=== PATIENT | female | born 1930 ===

== ENCOUNTER 2018-02-07 14:52 | Inpatient (IN) ==
--- NOTE | 2018-02-07 20:57 | Internal Med History&Physical ---
<Pedro Lal - Last Filed: 02/07/18 23:51> Date of Encounter: 02/07/18 Time of Encounter: 20:56 Internal Medicine - H&P: HPI Chief complaint: Weakness Admitted From: Hospital to Hospital Transfer Plans for Post Hospital Care: Home History of present illness: Ms. Bautista is a 87 year old female with past medical history of CHF, diabetes, hypertension, thyroid disease presented to emergency department in [place] with complaint of weakness 3 days. Patient states that her symptoms began gradually and has not improved. She denies any prior episodes similar to this. Weakness is worse with exertion and has no relieving factors. Denies any symptoms of fevers, chills, nausea, vomiting, chest pain, shortness of breath, changes to bowel or bladder. She denies any dysuria, hematuria, foul odors, increased frequency. Bowel movements have been normal without evidence of diarrhea or hematochezia or melena. She does live at home with her of 57 years and is able to move around with her cane. She states she is able to make it from the front door to her kitchen back to the living room before she has to rest. She does receive physical therapy 3 times weekly at home. Her only complaint at this time is gas in the abdomen without abdominal pain which she states is chronic for her and she is do not with for many years. At the [place] emergency room, vital signs first noted for a blood pressure of 178/76. Remainder of vitals include heart rate 88, respiratory rate 16, temperature 98.2, saturating 94% oxygen on room air. Laboratory results were significant for hemoglobin of 9.7, white count of 8.2, platelets of 24, potassium 4.5, BUN/creatinine/creatinine of 15/1.02, bicarbonate of 25, glucose 210. Lactic acid was mildly elevated at 3.13 and troponin was negative. PT/INR of 15.9/1.3, PTT of 27.6. BNP was 267. She was tested for the flu PCR which was negative. Urinalysis was obtained and was positive for nitrites but negative for leukocyte esterase or epithelial cells. She was started on Rocephin. Chest x-ray was obtained and showed evidence of left ventricular enlargement but no acute process. She was also found to have an increased density behind the heart possibly consistent with hiatal hernia. Per [place] ED notes And daughter who was present at that time, patient is scheduled to meet with a Dr. Alcazar for her thrombocytopenia but has not met with him yet. He was contacted in the [place] emergency room who says that she will follow-up as outpatient but did not feel the need to evaluate well inpatient. Past medical history as above Past surgical history includes hysterectomy, cholecystectomy, thyroidectomy Social history: Never smoker, denies alcohol or drug use Past Med Surg Social Fam HX - Past Medical History Medical history: CHF, diabetes, hypertension, thyroid disease - Past Surgical History Surgical History: cholecystectomy, hysterectomy, thyroidectomy - Social History Smoking Status: Never smoker Smokeless Tobacco Status: No Alcohol use: none Drug use: none Internal Medicine - H&P: Meds Acetaminophen [Tylenol] 650 mg PO Q6HR PRN 02/07/18 [History] Amlodipine/Valsartan [Exforge 10-320 mg Tablet] 1 tab PO DAILY 02/07/18 [History] Cholecalciferol (Vitamin D3) [Decara] 10,000 unit PO MO 02/07/18 [History] Cranberry Fruit Extract [Cranberry] 400 mg PO TID 02/07/18 [History] Cyanocobalamin (B-12) [Vitamin B12] 1,000 mcg IM QMONTH 02/07/18 [History] Cyanocobalamin (Vitamin B-12) [Vitamin B12] 500 mcg PO DAILY 02/07/18 [History] Fesoterodine Fumarate [Toviaz] 8 mg PO DAILY 02/07/18 [History] Glimepiride [Amaryl] 1 mg PO DAILY 02/07/18 [History] Levothyroxine Sodium [Levoxyl] 75 mcg PO DAILY 02/07/18 [History] Metoprolol Succinate [Toprol Xl] 100 mg PO DAILY 02/07/18 [History] Trazodone HCl 100 mg PO HS 02/07/18 [History] metFORMIN [Glucophage] 500 mg PO DAILY 02/07/18 [History] All Systems PM: A 10-system review of systems was performed and is negative for pertinent findings except as documented above in the HPI. Review of systems: - Constitutional: Denies fevers, chills, weight loss, generalized fatigue - CVS: Denies chest pain, palpitations, BUNCH, orthopnea, edema, PND, - Pulm: Denies SOB, cough, sputum, hematemesis, wheezing - GI: Admits to gas. Denies abdominal pain, anorexia, nausea, vomiting, diarrhea, constipation, melena - : Denies dysuria, increased frequency, urgency, hematuria, - Heme: Denies ease of bleeding or bruising - Skin: Denies rashes, ulcers, color changes, - Neuro: Denies SIMS, paresthesias, focal deficits, ataxia, - Constitutional Vitals: Temp Pulse Resp BP Pulse Ox 97.5 F L 83 16 144/78 91 02/07/18 18:49 02/07/18 18:49 02/07/18 18:49 02/07/18 18:49 02/07/18 18:49 Exam: Gen.: Vitals noted. No acute distress. AAOx3, resting comfortably in bed. HEENT: PERRL/EOMI, oropharynx clear, Normocephalic, atraumatic, MMM Neck: Supple. Well-healed thyroid scar Cardiac: RRR, no murmur, +S1/S2, No BLE edema Pulmonary: Possibly minimally diminished at right lower lobe otherwise CTA bilaterally, no wheezes, rales or rhonchi, equal chest expansion, unlabored breathing Abdomen: soft, nontender, BS noted, no guarding, no palpable HSM : Daley catheter in place with light yellow urine Skin: warm and dry, no visible lesions. MSK: ROM not assessed, no joint swelling noted, gait no assessed while in bed. Non tender calf or clubbing Neuro: A&Ox3, moves all extremities, no focal deficits, sensation intact, cranial nerves grossly intact Psych: Appropriate mood and behavior, AOx3 - Assessment and plan (1) UTI (urinary tract infection) Current Visit: Yes Status: Acute Assessment and plan: - UA in [place] positive for nitrites in the setting of weakness - Otherwise asymptomatic. - urine culture obtained in [place] - Started on rocephin in [place], will continue. - Non septic on presentation. Will give fluids and trend lactate Qualifiers: Urinary tract infection type: acute cystitis Hematuria presence: without hematuria Qualified Code(s): N30.00 - Acute cystitis without hematuria (2) Thrombocytopenia Current Visit: Yes Status: Acute Assessment and plan: - Per [facility] records, may be a chronic issue. - Platelets low at 24, unknown baseline. - Could be acute on chronic in the setting of infection with lactic acidosis - Was scheduled to be seen as outpatient with a Dr. Alcazar - No signs of bleed. H/H stable - Will consult Heme/Onc while inpatient - Will order type and screen. (3) Weakness Current Visit: Yes Status: Acute Assessment and plan: - Possibly secondary to UTI - Will order PT/OT - Rocephin for UTI - Check TSH (4) Diabetes Current Visit: Yes Status: Chronic Assessment and plan: - BS in [place] of 210 - Will order SSI - ADA diet. Qualifiers: Diabetes mellitus type: type 2 Diabetes mellitus chcf insulin use: unspecified chcf insulin use status Diabetes mellitus complication status: without complication Qualified Code(s): E11.9 - Type 2 diabetes mellitus without complications (5) Hypothyroid Current Visit: Yes Status: Acute Assessment and plan: - Per patient history, patient has thyroidectomy due to mass - She states mass was non malignant. - Patient's meds not reconciled yet. - Will check TSH Qualifiers: Hypothyroidism type: acquired Qualified Code(s): E03.9 - Hypothyroidism, unspecified (6) Hypertension Current Visit: Yes Status: Acute Assessment and plan: - Mildly elevated at 144/78 - Will continue home meds once reconciled. - Will add hydralazine in meantime. PRN Qualifiers: Hypertension type: essential hypertension Qualified Code(s): I10 - Essential (primary) hypertension (7) DVT prophylaxis Current Visit: Yes Status: Acute Assessment and plan: scd in the setting of thrombocytopenia - Time Spent With Patient Total time spent is greater than 50% in coordination of care (as documented) at patient's floor/unit and/or counseling patient: <Neil Silva - Last Filed: 02/08/18 01:48> Date of Encounter: 02/08/18 Internal Medicine - H&P: HPI History of present illness: Ms. Bautista is a 87 year old female All Systems PM: A 10-system review of systems was performed and is negative for pertinent findings except as documented above in the HPI. - Constitutional Vitals: Temp Pulse Resp BP Pulse Ox 98.0 F 82 15 144/70 91 02/08/18 00:28 02/08/18 00:28 02/08/18 00:28 02/08/18 00:28 02/08/18 00:28 Internal Med - H&P Results - Labs CBC & Chem 7: 02/08/18 00:21 02/08/18 00:21 Labs: Short CBC 02/08/18 Range/Units 00:21 WBC 5.9 (4.3-11.1) K/mcL Hgb 8.1 L (11.5-15.4) g/dL Hct 24.9 L (35.3-44.9) % Plt Count 18 L* (140-400) K/mcL Neutrophils # 1.9 (1.6-8.9) K/mcL BMP 02/08/18 00:21 Sodium 135 L Potassium 4.0 Chloride 103 Carbon Dioxide 27 BUN 12 Creatinine 0.91 Glucose 182 H Calcium 9.1 - Time Spent With Patient Total time spent is greater than 50% in coordination of care (as documented) at patient's floor/unit and/or counseling patient: - Attending Attestation I saw and evaluated the patient. I reviewed the residents note, performed my own physical examination and agree with findings and plan as documented in the residents note. Patient seen and examined on 01/18/18. Patient presented [place] emergency room for weakness and gassy pain. Found to have urinary tract infection of thrombocytopenia. Transferred here for further management. We will continue to monitor her platelets and transfuse if she continues to drop. Currently she is not showing signs of bleeding. We will type and screen her just in case. Follow-up urine cultures when available.
[2018-02-07] MEDS ORDERED: Naloxone 0.4 MG/ML INJ IVP PRN (21:26)
[2018-02-07] MEDS ORDERED: Dextrose Gel 15 GM/37.5 ML TUBE PO PRN ×2 (21:43)
[2018-02-07] MEDS ORDERED: *HR* Dextrose 50 % in Water (Syg) 50 ML SYRINGE IVP PRN (21:43)
[2018-02-07] MEDS ORDERED: D5% in Water 1,000 ML IVC PRN (21:43)
[2018-02-08] MEDS: Simethicone 80 MG TAB.CHEW PO PRN ×2 (00:29→18:02)
[2018-02-08] MEDS: 0.9 % Sodium Chloride 1,000 ML IVC SCH ×2 (00:31→14:34)
[2018-02-08 00:38] LABS: Mean Corpuscular Volume 103.3 fL (83.0-100.0)
[2018-02-08 00:39] LABS: Hematocrit 24.9 % (35.3-44.9); Hemoglobin 8.1 g/dL (11.5-15.4); Immature Platelets 4.5 % (1.1-6.1); Mean Corpuscular HGB Conc 32.5 g/dL (31.6-35.5); Mean Corpuscular Hemoglobin 33.6 pg (28.0-33.3); Mean Platelet Volume 9.9 fL (9.4-12.4); Nucleated Red Blood Cells 0.3 /100 WBC (0); Red Blood Count 2.41 M/mcL (3.82-4.97); Red Cell Distribution Width 17.1 % (11.5-14.5)
[2018-02-08 00:47] LABS: INR 1.4; Prothrombin Time 15.4 Seconds (9.4-12.1)
[2018-02-08 00:49] LABS: Activated Partial Thrombo Time 28.7 Seconds (26.0-36.0)
[2018-02-08 00:55] LABS: BUN/Creatinine Ratio 13 (6-26); Blood Urea Nitrogen 12 mg/dL (8-23); Calcium 9.1 mg/dL (8.6-10.3); Carbon Dioxide 27 mEq/L (23-29); Chloride 103 mEq/L (98-107); Glucose 182 mg/dL (70-105); Osmolality,Calculated 284 (280-300); Sodium 135 mEq/L (136-145); eGFR For Non-African Americans 59 (> 60)
[2018-02-08 01:01] LABS: Platelet Count 18 K/mcL (140-400)
[2018-02-08 01:05] LABS: Lymphocytes # 3.4 K/mcL (0.6-4.6); Monocytes # 0.6 K/mcL (0.0-1.3); Neutrophils # 1.9 K/mcL (1.6-8.9)
[2018-02-08 01:06] LABS: Platelet Estimate Marked Decrease (Normal); Polychromasia 1+ (Not Present)
[2018-02-08] MEDS ORDERED: 0.9 % Sodium Chloride 250 ML ONE (02:12)
[2018-02-08 05:01] LABS: Hematocrit 24.7 % (35.3-44.9); Hemoglobin 8.1 g/dL (11.5-15.4); Immature Platelets 3.4 % (1.1-6.1); Mean Corpuscular HGB Conc 32.8 g/dL (31.6-35.5); Mean Corpuscular Hemoglobin 33.2 pg (28.0-33.3); Mean Corpuscular Volume 101.2 fL (83.0-100.0); Mean Platelet Volume 10.7 fL (9.4-12.4); Nucleated Red Blood Cells 0.3 /100 WBC (0); Red Blood Count 2.44 M/mcL (3.82-4.97); Red Cell Distribution Width 17.1 % (11.5-14.5)
[2018-02-08 05:19] LABS: BUN/Creatinine Ratio 13 (6-26); Blood Urea Nitrogen 11 mg/dL (8-23); Calcium 9.2 mg/dL (8.6-10.3); Carbon Dioxide 25 mEq/L (23-29); Chloride 103 mEq/L (98-107); Glucose 164 mg/dL (70-105); Osmolality,Calculated 283 (280-300); Potassium 4.2 mEq/L (3.5-5.1); Sodium 135 mEq/L (136-145); eGFR For Non-African Americans > 60 (> 60)
[2018-02-08 05:49] LABS: Platelet Count 30 K/mcL (140-400)
[2018-02-08 06:20] LABS: Lymphocytes # 4.1 K/mcL (0.6-4.6); Monocytes # 1.4 K/mcL (0.0-1.3); Neutrophils # 1.4 K/mcL (1.6-8.9)
[2018-02-08 06:21] LABS: Platelet Estimate Marked Decrease (Normal)
[2018-02-08] MEDS: cefTRIAXone 1,000 MG in Water for inj. (sterile) 20 ML 10 ML IVP SCH (08:01)
[2018-02-08] MEDS: Acetaminophen 325 MG TABLET PO PRN ×2 (08:02→18:01)
[2018-02-08] MEDS: Metoprolol XL (24 HR) Succ 50 MG TAB.ER.24H PO SCH (08:02)
[2018-02-08] MEDS: Insulin LISPRO 300 UNITS/3 ML VIAL SQ SCH ×4 (08:02→21:01)
[2018-02-08] MEDS: Valsartan 160 MG TABLET PO SCH (08:02)
[2018-02-08] MEDS: amLODIPine 5 MG TABLET PO SCH (08:02)
--- NOTE | 2018-02-08 08:40 | Internal Med Progress Note ---
Hospitalist Progress Note - Encounter Date of Encounter: 02/08/18 Time of Encounter: 08:40 - Subjective Interval History: Patient seen and examined bedside this morning. No acute overnight events. Had a low-grade fever overnight. Denied any difficulty urinating before. Denied any burning urination before. Denies any abdominal pain back pain. Had c omplaint of sickness for past few days. Does not know about her hemoglobin levels before. Denies any blood in stool. Was able to walk with walker at home. - Exam Vitals: Temp Pulse Resp BP Pulse Ox 100.4 F H 84 16 138/71 93 02/08/18 07:03 02/08/18 07:03 02/08/18 07:03 02/08/18 07:03 02/08/18 07:03 Exam: General: In no acute distress. Conversant. Obese. Respiratory exam: CTAB. no accessory muscle use, rales, rhonchi, wheezes Cardiovascular exam: RRR, +S1, +S2. 3/6 ejection systoic murmur, no gallop, rubs. GI/Abdominal exam: Non-tender, Non-distended, normal bowel sounds, soft, no peritoneal signs. edan in place with clear urine Extremities exam: full ROM, no pedal edema, warm, pulses palpable in b/l lower extremities. no calf tenderness Neurological exam: CN II-XII intact, AO X3, no focal deficits. no pronater drift, facial droop, speech deficit Skin exam: No skin rash, ulcer, purpura or ecchymosis. - Summary of Assessment and Plan Summary of Assessment and Plan: UTI - UA in [place] positive for nitrites in the setting of weakness, denies dysuria - Had elevated lactate of 3.3. Now resolved - f/u Urine culture. repeat UA - c/w ceftriaxone - c/w IVF fluids Thrombocytopenia - possibly chronic. unknown baseline. Could be acute on chronic in the setting of infection with lactic acidosis - No signs of bleed. H/H stable - Heme/Onc consulted - Will transfuse if develops spontaneous bleeding Anemia - Unknown baseline. Possibly chronic - Monitor for bleeding Weakness - No focal deficits. Possibly secondary to UTI and anemia - f/u PT/OT. Was get therapy at home. - TSH normal Diabetes - c/w SSI, accuchecks and ADA diet. Hypothyroid - TSH normal. c/w home levothyroxin Hypertension - c/w home medications DVT prophylaxis -scd in the setting of thrombocytopenia - Time Spent with Patient Total time spent is greater than 50% in coordination of care (as documented) at patient's floor/unit and/or counseling patient: Internal Medicine: Result - Labs CBC & Chem 7: 02/08/18 04:39 02/08/18 04:39 Labs: Short CBC 02/08/18 02/08/18 Range/Units 00:21 04:39 WBC 5.9 6.9 (4.3-11.1) K/mcL Hgb 8.1 L 8.1 L (11.5-15.4) g/dL Hct 24.9 L 24.7 L (35.3-44.9) % Plt Count 18 L* 30 L* D (140-400) K/mcL Neutrophils # 1.9 1.4 L (1.6-8.9) K/mcL BMP 02/08/18 02/08/18 00:21 04:39 Sodium 135 L 135 L Potassium 4.0 4.2 Chloride 103 103 Carbon Dioxide 27 25 BUN 12 11 Creatinine 0.91 0.87 Glucose 182 H 164 H Calcium 9.1 9.2 - ABG Interpretation ABG results: PT/INR, D-dimer PT 15.4 Seconds (9.4-12.1) H 02/08/18 00:21 Consult Discharge Plan - Plan Referrals: NONE,PCP [Primary Care Provider] -
[2018-02-08 09:00] LABS: Bilirubin,Urine Negative (Negative); Blood,Urine Negative (Negative); Color,Urine Yellow (Yellow); Glucose,Urine (UA) Normal (Normal); Ketones,Urine Negative (Negative); Leukocyte Esterase,Urine Small (Negative); Nitrite,Urine Negative (Negative); Protein,Urine Negative (Neg-Trace); Specific Gravity,Urine 1.016 (1.010-1.025); Urobilinogen,Urine Normal (Normal)
[2018-02-08 09:03] LABS: Bacteria,Urine None Seen per hpf (None-Few); Clarity,Urine Hazy (Clear); Squamous Epithelial Cell,Urine Many per lpf (None-Few)
[2018-02-08] MEDS: Ondansetron 4 MG/2 ML VIAL IVP PRN (18:01)
--- NOTE | 2018-02-08 21:34 | Event Note ---
Date of Encounter: 02/08/18 Time of Encounter: 20:10 Notified by nurse of patient reporting chest pain and oxygen saturations dropping. EKG and chest xray ordered. Assessed patient at bedside, now stating chest pain has completely resolved. EKG sinus rhythm. Lung sounds diminished with history of CHF, IVF's stopped as patient tolerating PO intake. Patient requiring oxygen via mask and nasal canula intermittently today, saturations responded well to increased oxygen, will continue to titrate down as tolerated. Chest xray changes could be related to fluid overload or possibly early development of pneumonia. Patient denies any cough, shortness of breath, or chills. Monitor closely for any other signs of pneumonia as additional antibiotic coverage may be warranted.
[2018-02-09] MEDS: Ondansetron 4 MG/2 ML VIAL IVP PRN ×2 (02:46→17:50)
[2018-02-09 04:00] LABS: Basophils % 0.4 %; Mean Platelet Volume 9.8 fL (9.4-12.4); Red Cell Distribution Width 17.1 % (11.5-14.5)
[2018-02-09 04:01] LABS: Eosinophils % 15.7 %; Hematocrit 25.5 % (35.3-44.9); Hemoglobin 8.5 g/dL (11.5-15.4); Immature Granulocytes % 1.1 % (0-4); Immature Platelets 4.5 % (1.1-6.1); Lymphocytes # 3.3 K/mcL (0.6-4.6); Lymphocytes % 31.4 %; Mean Corpuscular HGB Conc 33.3 g/dL (31.6-35.5); Mean Corpuscular Hemoglobin 34.8 pg (28.0-33.3); Mean Corpuscular Volume 104.5 fL (83.0-100.0); Monocytes % 40.5 %; Nucleated Red Blood Cells 0.3 /100 WBC (0); Red Blood Count 2.44 M/mcL (3.82-4.97); Segmented Neutrophils % 10.9 %
[2018-02-09 04:04] LABS: Eosinophils # 1.7 K/mcL (0.0-0.6); Monocytes # 4.3 K/mcL (0.0-1.3); Neutrophils # 1.1 K/mcL (1.6-8.9)
[2018-02-09 04:06] LABS: Platelet Count 24 K/mcL (140-400)
[2018-02-09 04:12] LABS: BUN/Creatinine Ratio 15 (6-26); Blood Urea Nitrogen 14 mg/dL (8-23); Calcium 9.6 mg/dL (8.6-10.3); Carbon Dioxide 21 mEq/L (23-29); Chloride 103 mEq/L (98-107); Glucose 205 mg/dL (70-105); Osmolality,Calculated 286 (280-300); Sodium 135 mEq/L (136-145); eGFR For Non-African Americans 59 (> 60)
[2018-02-09 04:50] LABS: Macrocytosis Present (Not Present); Platelet Estimate Marked Decrease (Normal); Polychromasia 1+ (Not Present); Reactive Lymphocytes Present (Not Present)
[2018-02-09 08:27] LABS: Bilirubin,Direct 0.1 mg/dL (0.0-0.2); Bilirubin,Indirect 0.2 mg/dL (0.0-1.2); Bilirubin,Total 0.3 mg/dL (0.3-1.0); Globulin 2.9 g/dL (2.4-3.5); Total Protein 5.9 g/dL (6.4-8.9)
[2018-02-09] MEDS: cefTRIAXone 1,000 MG in Water for inj. (sterile) 20 ML 10 ML IVP SCH (08:49)
[2018-02-09] MEDS: Valsartan 160 MG TABLET PO SCH (08:49)
[2018-02-09] MEDS: amLODIPine 5 MG TABLET PO SCH (08:50)
[2018-02-09] MEDS: Simethicone 80 MG TAB.CHEW PO PRN ×2 (08:50→14:01)
[2018-02-09] MEDS: Metoprolol XL (24 HR) Succ 50 MG TAB.ER.24H PO SCH (08:50)
[2018-02-09] MEDS: Insulin LISPRO 300 UNITS/3 ML VIAL SQ SCH ×4 (08:51→20:48)
--- NOTE | 2018-02-09 12:03 | Internal Med Progress Note ---
Hospitalist Progress Note - Encounter Date of Encounter: 02/09/18 Time of Encounter: 12:03 - Subjective Interval History: Patient seen and examined bedside this morning. No acute overnight events. No fever, chills, n/V/D. Denied any burning urination before. Denies any abdominal pain back pain. Has some shortness of breath overnight needed more oxygen. - Exam Vitals: Temp Pulse Resp BP Pulse Ox 98.6 F 89 17 157/64 92 02/09/18 11:52 02/09/18 11:52 02/09/18 11:52 02/09/18 11:52 02/09/18 11:52 Exam: General: In no acute distress. Conversant. Obese. Respiratory exam: no accessory muscle use, rhonchi, wheezes. Has bilateral base crackles. Cardiovascular exam: RRR, +S1, +S2. 3/6 ejection systoic murmur, no gallop, rubs. GI/Abdominal exam: Non-tender, Non-distended, normal bowel sounds, soft, no peritoneal signs Extremities exam: full ROM, 1+ pedal edema, warm, pulses palpable in b/l lower extremities. no calf tenderness Neurological exam: CN II-XII intact, AO X3, no focal deficits. no pronater drift, facial droop, speech deficit Skin exam: No skin rash, ulcer, purpura or ecchymosis. - Summary of Assessment and Plan Summary of Assessment and Plan: UTI - UA in [place] positive for nitrites in the setting of weakness, denies dysuria - Had elevated lactate of 3.3. Now resolved - Urine culture without growth. - c/w ceftriaxone for 5 days. Shortness of breath - Likely related to fluid overload - stop IVF fluids Anemia/Thrombocytopenia - possibly chronic. unknown baseline. Could be acute on chronic in the setting of infection with lactic acidosis - Macrocytic. get hepatic profile, vit B12, folate, haptoglobin, fibrinogen and liver ultrasound. - No signs of bleed. H/H stable - Heme/Onc consulted - Will transfuse if develops spontaneous bleeding Anemia - Unknown baseline. Possibly chronic - Monitor for bleeding Weakness - No focal deficits. Possibly secondary to UTI and anemia - f/u PT/OT. Was get therapy at home. - TSH normal Diabetes - c/w SSI, accuchecks and ADA diet. Hypothyroid - TSH normal. c/w home levothyroxin Hypertension - c/w home medications DVT prophylaxis -scd in the setting of thrombocytopenia - Time Spent with Patient Total time spent is greater than 50% in coordination of care (as documented) at patient's floor/unit and/or counseling patient: Internal Medicine: Result - Labs CBC & Chem 7: 02/09/18 03:32 02/09/18 03:32 Labs: Short CBC 02/09/18 Range/Units 03:32 WBC 10.5 D (4.3-11.1) K/mcL Hgb 8.5 L (11.5-15.4) g/dL Hct 25.5 L (35.3-44.9) % Plt Count 24 L* (140-400) K/mcL Neutrophils # 1.1 L (1.6-8.9) K/mcL BMP 02/09/18 03:32 Sodium 135 L Potassium 4.0 Chloride 103 Carbon Dioxide 21 L BUN 14 Creatinine 0.91 Glucose 205 H Calcium 9.6 Liver Function 02/09/18 Range/Units 07:45 Total Bilirubin 0.3 (0.3-1.0) mg/dL Direct Bilirubin 0.1 (0.0-0.2) mg/dL AST 8 L (13-39) Units/L ALT 4 L (7-52) Units/L Alkaline Phosphatase 62 (34-104) Units/L Albumin 3.0 L (3.5-5.7) g/dL - ABG Interpretation ABG results: PT/INR, D-dimer PT 15.4 Seconds (9.4-12.1) H 02/08/18 00:21 - Impressions Impressions Chest X-Ray 02/08/18 20:18 IMPRESSION: Trace effusions and mild bibasilar airspace disease which could represent atelectasis or pneumonia. D/ / Lisandro Dee MD / Lisandro Dee MD Interpreting Provider: Lisandro Dee MD Consult Discharge Plan - Plan Referrals: NONE,PCP [Primary Care Provider] -
[2018-02-09] MEDS ORDERED: Furosemide 20 MG/2 ML VIAL IVP ONE (13:44)
--- NOTE | 2018-02-09 17:14 | Oncology Inp Consult Note ---
Date of Encounter: 02/09/18 Time of Encounter: 17:09 Assessment and Plan (1) Thrombocytopenia Status: Acute Assessment and plan: Likely acute on chronic thrombocytopenia. Overall she has pancytopenia with macrocytic anemia. We will rule out nutritional factors including B12 folate. TSH normal at 2.2 on 02/08/2018 Liver enzymes normal. Glucose 205. Creatinine 0.91. Her coagulation profile on admission January 30 prothrombin time 15.4 with INR 1.4. PTT 28 and fibrinogen [address] abdomen without contrast to evaluate her for cirrhosis. If elbow factors are negative may consider bone marrow biopsy to rule out underlying MDS. Given that some of these could be secondary to sepsis may wait till she recovers from her current status before considering bone marrow biopsy Later I reviewed the lab work. B12 low normal at 275. Folate normal. Noncontrast CT abdomen and pelvis negative for acute process and no mention of cirrhosis (2) Hypothyroid Status: Acute Assessment and plan: Her TSH is normal on Synthroid Qualifiers: Qualified Code(s): E03.9 - Hypothyroidism, unspecified (3) UTI (urinary tract infection) Status: Acute Assessment and plan: Currently on ceftriaxone 1 g IV daily Qualifiers: Qualified Code(s): N30.00 - Acute cystitis without hematuria - Data of Consult Patient: new to practice Requesting Physician: Emma Maldonado MD Primary Care Provider: PCP NONE - Consult Narrative Reason for consult: Thrombocytopenia History of present illness: Was transferred from [facility] with possible UTI/sepsis. At [place] her urine analysis showed only faint leukocyte esterase and urine culture is been negative. Hematology consult was for thrombocytopenia. On reviewing the chart the duration of thrombocytopenia is not clear but could be chronic. She also has mild macrocytic anemia Currently blood pressure stable 149/67 pulse 88 respirations 17. Her lactic acid was mildly elevated on admission at 3.1. She is admitted with neutrophil of 1900 currently 1100. Also macrocytic anemia hemoglobin 8.5 MCV 104. She does have long-standing diabetes which puts her risk for Zimmerman and cirrhosis Past Med Surg Social Fam HX - Past Medical History Medical history: CHF, diabetes, hypertension, thyroid disease - Past Surgical History Surgical History: cholecystectomy, hysterectomy, thyroidectomy - Social History Smoking Status: Never smoker Smokeless Tobacco Status: No Alcohol use: none Drug use: none Medications and Allergies Acetaminophen [Tylenol] 650 mg PO Q6HR PRN 02/07/18 [History] Amlodipine/Valsartan [Exforge 10-320 mg Tablet] 1 tab PO DAILY 02/07/18 [History] Cholecalciferol (Vitamin D3) [Decara] 10,000 unit PO MO 02/07/18 [History] Cranberry Fruit Extract [Cranberry] 400 mg PO TID 02/07/18 [History] Cyanocobalamin (B-12) [Vitamin B12] 1,000 mcg IM QMONTH 02/07/18 [History] Cyanocobalamin (Vitamin B-12) [Vitamin B12] 500 mcg PO DAILY 02/07/18 [History] Fesoterodine Fumarate [Toviaz] 8 mg PO DAILY 02/07/18 [History] Glimepiride [Amaryl] 1 mg PO DAILY 02/07/18 [History] Levothyroxine Sodium [Levoxyl] 75 mcg PO DAILY 02/07/18 [History] Metoprolol Succinate [Toprol Xl] 100 mg PO DAILY 02/07/18 [History] Trazodone HCl 100 mg PO HS 02/07/18 [History] metFORMIN [Glucophage] 500 mg PO DAILY 02/07/18 [History] Allergy/AdvReac Type Severity Reaction Status Date / Time No Known Allergies Allergy Verified 02/08/18 01:33 Review of systems: Deconditioning. Shortness of breath on a nonrebreather mask when I examined her. Denied chest pain. No bleeding episodes. Patient is a poor historian. Has some joint pain and muscle pain. No fever chills. Mild confusion. No focal neurological deficits Oncology - Exam - Constitutional Exam: GENERAL: Alert but mildly lethargic. Mental Status: Affect appropriate for circumstances HEENT: Sclerae anicteric. No mucositis or thrush. No other oral or pharyngeal lesions or erythema. Skin: No rashes or petechiae. No evidence of skin malignancy Lymph nodes: No cervical, supraclavicular, axillary, or inguinal adenopathy. Lungs: On oxygen by non-rebreather mask. He had an she decreased at bases Cardiovascular: Regular rate and rhythm. No skipped beats Abdomen: Soft, nontender; no organomegaly or masses palpable. Extremities: Trace to 1+ edema. No calf swelling or tenderness. No joint deformity. Neurologic: Alert, cranial nerves II-XII intact; normal gait; no focal weakness but deconditioning Consult Discharge Plan - Plan Referrals: NONE,PCP [Primary Care Provider] - Inpatient Charges Provider: Dr. Ricardo Negrete Consult - Inpatient: [id number]
[2018-02-09 18:35] LABS: Folate 11.2 ng/mL (3.0-16.0)
[2018-02-09] MEDS: traZODone 50 MG TABLET PO SCH (20:48)
[2018-02-10] MEDS ORDERED: Furosemide 20 MG/2 ML VIAL IVP ONE ×5 (01:41→08:47)
--- NOTE | 2018-02-10 01:47 | Event Note ---
Date of Encounter: 02/10/18 Time of Encounter: 01:30 Notified by nurse of patient having decreased oxygen saturations in 80's. Assessed patient at bedside with RT, seems to be fluid overloaded. Saturations returned to baseline with non rebreather. Received lasix around 12 hours ago with improvement in respiratory status, will repeat same, kidney function normal besides GFR of 59. Will titrate oxygen down as tolerated.
[2018-02-10 06:17] LABS: Hemoglobin 7.9 g/dL (11.5-15.4); Immature Granulocytes % 0.6 % (0-4); Mean Platelet Volume 11.3 fL (9.4-12.4)
[2018-02-10 06:18] LABS: Basophils % 0.4 %; Eosinophils # 1.5 K/mcL (0.0-0.6); Eosinophils % 15.8 %; Hematocrit 24.1 % (35.3-44.9); Immature Platelets 6.2 % (1.1-6.1); Lymphocytes # 3.3 K/mcL (0.6-4.6); Lymphocytes % 34.2 %; Mean Corpuscular HGB Conc 32.8 g/dL (31.6-35.5); Mean Corpuscular Hemoglobin 33.9 pg (28.0-33.3); Mean Corpuscular Volume 103.4 fL (83.0-100.0); Monocytes # 3.4 K/mcL (0.0-1.3); Monocytes % 34.9 %; Neutrophils # 1.4 K/mcL (1.6-8.9); Nucleated Red Blood Cells 0.3 /100 WBC (0); Red Blood Count 2.33 M/mcL (3.82-4.97); Red Cell Distribution Width 17.1 % (11.5-14.5); Segmented Neutrophils % 14.1 %
[2018-02-10 06:21] LABS: Platelet Count 20 K/mcL (140-400)
--- NOTE | 2018-02-10 07:16 | Event Note ---
Date of Encounter: 02/10/18 Time of Encounter: 06:42 Notified by nurse of patient having decreased oxygen saturations in 80's. Assessed patient at bedside. RT called for breathing treatment. Saturations improved with increased oxygen and breathing treatment, patient feels improved. Vitals stable. Nurse to continue to titrate down oxygen as tolerated.
[2018-02-10] MEDS: Insulin LISPRO 300 UNITS/3 ML VIAL SQ SCH ×5 (08:27→23:01)
[2018-02-10] MEDS: cefTRIAXone 1,000 MG in Water for inj. (sterile) 20 ML 10 ML IVP SCH (08:49)
[2018-02-10] MEDS: Metoprolol XL (24 HR) Succ 50 MG TAB.ER.24H PO SCH (10:54)
[2018-02-10] MEDS: amLODIPine 5 MG TABLET PO SCH (10:54)
[2018-02-10] MEDS: Valsartan 160 MG TABLET PO SCH (10:54)
--- NOTE | 2018-02-10 12:09 | Internal Med Progress Note ---
Hospitalist Progress Note - Encounter Date of Encounter: 02/10/18 Time of Encounter: 11:51 - Subjective Interval History: Patient seen and examined bedside this morning. No acute overnight events. No fever, chills, n/V/D. Denied any burning urination before. Denies any abdominal pain back pain. Has some shortness of breath overnight needed more oxygen. - Exam Vitals: Temp Pulse Resp BP Pulse Ox 97.9 F 88 18 149/64 95 02/10/18 11:11 02/10/18 11:11 02/10/18 11:11 02/10/18 11:11 02/10/18 11:11 Exam: General: In no acute distress. Conversant. Obese. Respiratory exam: no accessory muscle use, rhonchi, wheezes. Has bilateral base and mid lung field crackles . Cardiovascular exam: RRR, +S1, +S2. 3/6 ejection systoic murmur, no gallop, rubs. GI/Abdominal exam: Non-tender, Non-distended, normal bowel sounds, soft, no peritoneal signs Extremities exam: full ROM, 1+ pedal edema, warm, pulses palpable in b/l lower extremities. no calf tenderness Neurological exam: CN II-XII intact, AO X3, no focal deficits. no pronater drift, facial droop, speech deficit Skin exam: ecchymosis on arms - Summary of Assessment and Plan Summary of Assessment and Plan: UTI - UA in [place] positive for nitrites in the setting of weakness, denies dysuria - Had elevated lactate of 3.3. Now resolved after IVF. Fluids topped yesterday. - Urine culture without growth. - c/w ceftriaxone for 5 days. Shortness of breath - Likely related to fluid overload - Intially though to be from IVF but today EKG with Afib this morning - get ECHO and troponin. Patient without chest pain - c/w lasix. Increase to BID. - c/w bipap New onset Afib - Currently Rate controlled. - On metoprolol - Discussed with cardiology. Recommended to starting heparin if okay with hematology. spoke with hematology. Will give platelets and start heparin. Discussed with heparin risk/benefits Anemia/Thrombocytopenia - possibly chronic. unknown baseline. Could be acute on chronic. In the setting of infection with lactic acidosis - Macrocytic. hepatic profile noted, vit B12 low end of normal, normal folate. CT - No signs of bleed. H/H stable - Heme/Onc following. appreicate recommendaton - Will transfuse if develops spontaneous bleeding. - To give platelets as starting heparing. May plan bone marrow on saturday. Anemia - Unknown baseline. Possibly chronic - Monitor for bleeding Weakness - No focal deficits. Possibly secondary to UTI and anemia - f/u PT/OT. Was get therapy at home. - TSH normal Diabetes - c/w SSI, accuchecks and ADA diet. Hypothyroid - TSH normal. c/w home levothyroxin Hypertension - c/w home medications DVT prophylaxis -scd in the setting of thrombocytopenia - Time Spent with Patient Total time spent is greater than 50% in coordination of care (as documented) at patient's floor/unit and/or counseling patient: Internal Medicine: Result - Labs CBC & Chem 7: 02/10/18 06:00 02/09/18 03:32 Labs: Short CBC 02/10/18 Range/Units 06:00 WBC 9.7 (4.3-11.1) K/mcL Hgb 7.9 L (11.5-15.4) g/dL Hct 24.1 L (35.3-44.9) % Plt Count 20 L* (140-400) K/mcL Neutrophils # 1.4 L (1.6-8.9) K/mcL - ABG Interpretation ABG results: PT/INR, D-dimer PT 15.4 Seconds (9.4-12.1) H 02/08/18 00:21 - Impressions Impressions Abdomen/Pelvis CT 02/10/18 09:30 IMPRESSION: Limited by motion artifact and lack of IV contrast. No CT evidence of acute intra-abdominal process. Small bilateral pleural effusions with bibasilar atelectasis or pneumonia. Colonic diverticulosis. Diffuse atherosclerotic disease. Diffuse osteopenia. D/ / Efra Banuelos / Efra Banuelos Interpreting Provider: Efra Banuelos Consult Discharge Plan - Plan Referrals: NONE,PCP [Primary Care Provider] -
[2018-02-10] MEDS ORDERED: 0.9 % Sodium Chloride 250 ML ONE (14:57)
[2018-02-10] MEDS ORDERED: Isovue-370 500 ML INFUS..BTL IV ONE (16:17)
[2018-02-10] MEDS: Ondansetron 4 MG/2 ML VIAL IVP PRN (16:24)
[2018-02-10 16:36] LABS: ABG Base Excess 1 mEq/L (-2 to 3); ABG HCO3 25 mEq/L (21-27); ABG Oxygen Saturation 91 % (95-98); ABG PCO2 41 mmHg (35-45); ABG PO2 61 mmHg (85-104); ABG TCO2 27 mEq/L (20-26)
[2018-02-10] MEDS ORDERED: *HR* Promethazine 25 MG/ML VIAL IVP STA (16:43)
[2018-02-10] MEDS ORDERED: *HR* Promethazine 25 MG/ML VIAL ONE (16:44)
[2018-02-10 16:53] LABS: Basophils # 0.1 K/mcL (0.0-0.2); Basophils % 0.3 %; Eosinophils # 1.8 K/mcL (0.0-0.6); Eosinophils % 11.2 %; Hematocrit 25.5 % (35.3-44.9); Hemoglobin 8.4 g/dL (11.5-15.4); Immature Granulocytes % 5.3 % (0-4); Lymphocytes # 6.6 K/mcL (0.6-4.6); Lymphocytes % 41.9 %; Mean Corpuscular HGB Conc 32.9 g/dL (31.6-35.5); Mean Corpuscular Hemoglobin 34.1 pg (28.0-33.3); Mean Corpuscular Volume 103.7 fL (83.0-100.0); Mean Platelet Volume 10.6 fL (9.4-12.4); Monocytes # 5.1 K/mcL (0.0-1.3); Monocytes % 32.4 %; Neutrophils # 1.4 K/mcL (1.6-8.9); Nucleated Red Blood Cells 0.3 /100 WBC (0); Red Blood Count 2.46 M/mcL (3.82-4.97); Red Cell Distribution Width 17.2 % (11.5-14.5); Segmented Neutrophils % 8.9 %
[2018-02-10 16:54] LABS: Platelet Count 41 K/mcL (140-400)
--- NOTE | 2018-02-10 16:55 | Oncology Inp Progress Note ---
<Herminia Toledo L - Last Filed: 02/10/18 18:35> Date of Encounter: 02/10/18 Time of Encounter: 17:00 Oncology: Subj Interval history: Assessed patient at bedside along with pulmonolgist who was asked to evaluate patient for acute respiratory distress with hypoxia on high flow oxygen. She was unable to tolerate bipap with vomiting. Planning to transfer to ICU now for potential need for intubation if she does not respond to oxygen supplementation. Family at bedside. Patient wishes to remain full code. - Constitutional General appearance: cooperative, no febrile Exam: acute respiratory distress with hypoxia on high flow O2 - Head Head exam: Present: atraumatic - ENT Additional comments: unable to examine at this time - Respiratory Respiratory exam: Present: decreased breath sounds, rales, respiratory distress - Cardiovascular Cardiovascular exam: Present: irregular rhythm - GI/Abdominal GI/Abdominal exam: Present: normal bowel sounds, soft. Absent: tenderness - Extremities Exam Extremities exam: Absent: calf tenderness - Neurological Exam Neurological exam: Present: alert, oriented X3, no focal deficits, strengths equal and symetr throughout - Psychiatric Psychiatric exam: Present: anxious - Skin Skin exam: Present: dry, intact, pallor, warm Oncology: Obj Data - Labs CBC & Chem 7: 02/10/18 16:34 02/09/18 03:32 Consult Discharge Plan - Plan Referrals: NONE,PCP [Primary Care Provider] - Inpatient Charges Provider: Dr. Ricardo Negrete Follow up - Inpatient: [id number] <Mitra Negrete S - Last Filed: 02/12/18 08:30> Date of Encounter: 02/10/18 (1) Thrombocytopenia Current Visit: Yes Status: Acute (2) Hypothyroid Current Visit: Yes Status: Chronic Qualifiers: Hypothyroidism type: acquired Qualified Code(s): E03.9 - Hypothyroidism, unspecified (3) UTI (urinary tract infection) Current Visit: Yes Status: Acute Qualifiers: Urinary tract infection type: acute cystitis Hematuria presence: without hematuria Qualified Code(s): N30.00 - Acute cystitis without hematuria Oncology: Obj Data - Labs CBC & Chem 7: 02/12/18 03:40 02/12/18 03:40 Inpatient Charges Provider: Dr. Ricardo Negrete Follow up - Inpatient: [id number] - Attending Attestation I examined this patient and my medical decision-making was reviewed with the Advanced Practice Nurse. I agree with the documented findings, disposition and treatment plan as described except to the extent set forth below. 1. Pancytopenia with worsening of thrombocytopenia. New onset atrial fibrillation. Cardiology recommended anticoagulation. We transfuse platelets and her platelet count when up to 44,000. But subsequently she was admitted to ICU with worsening of shortness of breath. She was initially on nonrebreather mask and currently on BiPAP. Given the above circumstances he was not started on any anticoagulation. Peripheral smear showed few schistocytes. Nothing suggestive of thrombotic thrombocytopenia purpura. Her renal function is still normal with creatinine 0.9. She does have some confusion but that could be from hypoxia. 2. Neutropenia. Her total white count is elevated with increasing monocyte count 5000 and eosinophil count 1800. We will continue to monitor that. Discussed in detail with the daughter. According to her the thrombocytopenia is more recent. She has not established with Dr. Alcazar at local cancer center there. We will try to obtain previous CBC report. When she is stable would consider bone marrow biopsy. Meanwhile we will do workup for hemolytic anemia. CT abdomen and pelvis showed no evidence of cirrhosis 3. New onset atrial fibrillation. Possible CHF. She is getting diuretics. Cu rrently on BiPAP.
[2018-02-10] MEDS ORDERED: Furosemide 20 MG/2 ML VIAL IVP SCH (17:00)
[2018-02-10 17:07] LABS: INR 1.5
--- NOTE | 2018-02-10 17:24 | Pulmonology Consult Note ---
<Jonh Schafer - Last Filed: 02/10/18 19:02> Date of Encounter: 02/10/18 Time of Encounter: 17:23 Assessment and Plan (1) Acute respiratory failure with hypoxemia Current Visit: Yes Status: Acute Patient admitted to the medical floor from [facility] with new onset A. fib and UTI. She had several episodes of nausea and vomiting and was given IV fluids. Critical care was consulted because she developed flash pulmonary edema. CT showed small bilateral pleural effusions with bibasilar atelectasis or pneumonia. ABG showed hypoxemia with a low SPO2's despite high flow oxygen. Patient was given Lasix and started on nitroglycerin drip. Continue on BiPAP therapy for acute respiratory failure. Patient completed 3 days of Ceftriaxone. Antibiotics broadened secondary to concerns for pneumonia. (2) Pulmonary edema Current Visit: Yes Status: Acute Patient was given Lasix and transferred to ICU. Started on nitroglycerin drip Repeat CXR in a.m. Qualifiers: Chronicity: acute Qualified Code(s): J81.0 - Acute pulmonary edema (3) Thrombocytopenia Current Visit: Yes Status: Acute Patient also has severe thrombocytopenia and her platelet count increased to 41 after she received 2 units platelets. Hematology oncology is following and considering bone marrow biopsy once she is more stable. (4) New onset atrial fibrillation Current Visit: Yes Status: Acute Patient is now back in NSR. Continue beta jayant. Heparin drip was stopped for anticoagulation due to thrombocytopenia. Avoid Heparin drip due to severe thromboctyopenia and increased risks of blee ding that outweigh risk of CVA (5) UTI (urinary tract infection) Current Visit: Yes Status: Acute UA in [place] positive for nitrites in the setting of weakness, denies dysuria Elevated lactate of 3.3. Now resolved after IVF. Urine culture without growth. Patient completed 3 days of Ceftriaxone. Antibiotics broadened secondary to concerns for pneumonia. Qualifiers: Urinary tract infection type: acute cystitis Hematuria presence: without hematuria Qualified Code(s): N30.00 - Acute cystitis without hematuria (6) Hypertension Current Visit: Yes Status: Acute Blood Pressure stable. Continue beta jayant. Qualifiers: Hypertension type: essential hypertension Qualified Code(s): I10 - Essential (primary) hypertension (7) Diabetes Current Visit: Yes Status: Chronic Nothing by mouth. Continue Accu-Cheks and SSI every 6 hours. 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 insulin use status Diabetes mellitus complication status: without complication Qualified Code(s): E11.9 - Type 2 diabetes mellitus without complications (8) Hypothyroid Current Visit: Yes Status: Chronic TSH WNL Continue Synthroid Qualifiers: Hypothyroidism type: acquired Qualified Code(s): E03.9 - Hypothyroidism, unspecified (9) DVT prophylaxis Current Visit: Yes Status: Acute EPCDs, avoid Heparin drip due to severe thromboctyopenia and increased risks of bleeding that outweigh risk of CVA History of Present Illness Consult date: 02/10/18 Requesting physician: Emma Maldonado Reason for consult: dyspnea, pleural effusion Chief complaint: SOB History of present illness: Ms. Bautista is a 87 year old female with PMH of hypertension, hypothyroidism and diabetes who was admitted to the medical floor from [facility] with new onset A. fib and UTI. Heparin drip for A. fib was stop secondary to severe thrombocytopenia. A. fib has spontaneously converted to normal sinus rhythm. Patient's platelet count increased to 41 after she received 2 units platelets. Hematology oncology is following and considering bone marrow biopsy once she is more stable. She also had several episodes of nausea and vomiting and was given IV fluids. Critical care was consulted today because she developed flash pulmonary edema. She is currently on BiPAP therapy for acute respiratory failure. ABG showed hypoxemia with a low SPO2's despite high flow oxygen. Patient was given Lasix and transferred to ICU. Past Med Surg Social Fam HX - Past Medical History Medical history: CHF, diabetes, hypertension, thyroid disease - Past Surgical History Surgical History: cholecystectomy, hysterectomy, thyroidectomy - Social History Smoking Status: Never smoker Smokeless Tobacco Status: No Alcohol use: none Drug use: none Medications and Allergies Acetaminophen [Tylenol] 650 mg PO Q6HR PRN 02/07/18 [History] Amlodipine/Valsartan [Exforge 10-320 mg Tablet] 1 tab PO DAILY 02/07/18 [History] Cholecalciferol (Vitamin D3) [Decara] 10,000 unit PO MO 02/07/18 [History] Cranberry Fruit Extract [Cranberry] 400 mg PO TID 02/07/18 [History] Cyanocobalamin (B-12) [Vitamin B12] 1,000 mcg IM QMONTH 02/07/18 [History] Cyanocobalamin (Vitamin B-12) [Vitamin B12] 500 mcg PO DAILY 02/07/18 [History] Fesoterodine Fumarate [Toviaz] 8 mg PO DAILY 02/07/18 [History] Glimepiride [Amaryl] 1 mg PO DAILY 02/07/18 [History] Levothyroxine Sodium [Levoxyl] 75 mcg PO DAILY 02/07/18 [History] Metoprolol Succinate [Toprol Xl] 100 mg PO DAILY 02/07/18 [History] Trazodone HCl 100 mg PO HS 02/07/18 [History] metFORMIN [Glucophage] 500 mg PO DAILY 02/07/18 [History] Allergy/AdvReac Type Severity Reaction Status Date / Time No Known Allergies Allergy Verified 02/08/18 01:33 All Systems: The remainder of the systems were reviewed and are negative - Constitutional Constitutional: fatigue, weakness, no chills, no fever(s), no headache(s), no weight gain, no weight loss - EENT Nose, mouth and throat: no headache(s), no sore throat - Cardiovascular Cardiovascular: dyspnea, irregular heart rhythm, orthopnea, palpitations, no chest pain - Respiratory Respiratory: dyspnea, wheezing - Gastrointestinal Gastrointestinal: nausea, vomiting, no abdominal pain, no diarrhea - Genitourinary Genitourinary: dysuria, urinary frequency - Musculoskeletal Musculoskeletal: no numbness, no tingling - Neurological Neurological: weakness, no headache(s), no syncope - Endocrine Endocrine: no fatigue, no polydipsia, no polyphagia, no polyuria - Hematologic/Lymphatic Hematologic/Lymphatic: no easy bleeding, no easy bruising Physical Examination Vital Signs: Vital Signs, Last 4 Hours Temp Pulse Resp BP Pulse Ox 02/10/18 15:53 100.9 F H 98 35 134/65 94 02/10/18 15:21 99.4 F 93 30 128/74 92 02/10/18 15:17 99.8 F H 93 30 122/75 92 02/10/18 15:06 99.8 F H 91 33 122/75 91 General appearance: appears uncomfortable (Moderate acute respiratory distress) Eyes: nonicteric ENT: oropharynx moist Neck: supple, JVD Effort: very labored Inspection: normal Auscultation: bilateral: diminished breath sounds, rales Percussion: bilateral: not dull Cardiovascular: regular rate and rhythm Gastrointestinal: normoactive bowel sounds, soft, non-distended Integumentary: normal (Ecchymosis) Extremities: no cyanosis, no edema, no clubbing Musculoskeletal: no deformities, ROM normal normal mental status, non-focal exam affect normal, anxious Results - Laboratory Findings CBC and BMP: 02/10/18 16:34 02/09/18 03:32 ABG ABG pH 7.40 pH Units (7.32-7.45) 02/10/18 16:33 ABG pCO2 41 mmHg (35-45) 02/10/18 16:33 ABG pO2 61 mmHg (85-104) L 02/10/18 16:33 ABG O2 Saturation 91 % (95-98) L 02/10/18 16:33 PT/INR, D-dimer PT 17.0 Seconds (9.4-12.1) H 02/10/18 16:50 Abnormal lab findings: Abnormal lab results WBC 15.7 K/mcL (4.3-11.1) H D 02/10/18 16:34 RBC 2.46 M/mcL (3.82-4.97) L 02/10/18 16:34 Hgb 8.4 g/dL (11.5-15.4) L 02/10/18 16:34 Hct 25.5 % (35.3-44.9) L 02/10/18 16:34 MCV 103.7 fL (83.0-100.0) H 02/10/18 16:34 MCH 34.1 pg (28.0-33.3) H 02/10/18 16:34 RDW 17.2 % (11.5-14.5) H 02/10/18 16:34 Plt Count 41 K/mcL (140-400) L D 02/10/18 16:34 Immature Gran % 5.3 % (0-4) H 02/10/18 16:34 Neutrophils # 1.4 K/mcL (1.6-8.9) L 02/10/18 16:34 Lymphocytes # 6.6 K/mcL (0.6-4.6) H 02/10/18 16:34 Monocytes # 5.1 K/mcL (0.0-1.3) H 02/10/18 16:34 Eosinophils # 1.8 K/mcL (0.0-0.6) H 02/10/18 16:34 Nucleated RBCs/100 WBC 0.3 /100 WBC (0) H 02/10/18 16:34 Reactive Lymphocytes Present (Not Present) A 02/09/18 03:32 Platelet Estimate Marked Decrease (Normal) L 02/09/18 03:32 Immature Plt Fraction 6.2 % (1.1-6.1) H 02/10/18 06:00 Polychromasia 1+ (Not Present) A 02/09/18 03:32 Macrocytosis Present (Not Present) A 02/09/18 03:32 PT 17.0 Seconds (9.4-12.1) H 02/10/18 16:50 ABG pO2 61 mmHg (85-104) L 02/10/18 16:33 ABG Total CO2 27 mEq/L (20-26) H 02/10/18 16:33 ABG O2 Saturation 91 % (95-98) L 02/10/18 16:33 Sodium 135 mEq/L (136-145) L 02/09/18 03:32 Carbon Dioxide 21 mEq/L (23-29) L 02/09/18 03:32 Est GFR (Non-Af Amer) 59 (> 60) L 02/09/18 03:32 Glucose 205 mg/dL (70-105) H 02/09/18 03:32 POC Glucose 237 mg/dL (70-99) H 02/09/18 20:26 Lactic Acid 2.4 mmol/L (0.5-2.2) H 02/10/18 16:34 AST 8 Units/L (13-39) L 02/09/18 07:45 ALT 4 Units/L (7-52) L 02/09/18 07:45 Serum Total Protein 5.9 g/dL (6.4-8.9) L 02/09/18 07:45 Albumin 3.0 g/dL (3.5-5.7) L 02/09/18 07:45 Albumin/Globulin Ratio 1.0 (1.1-2.2) L 02/09/18 07:45 Urine Clarity Hazy (Clear) A 02/08/18 08:35 Ur Leukocyte Esterase Small (Negative) H 02/08/18 08:35 Urine Microscopic RBC 5-15 per hpf (0-3) H 02/08/18 08:35 Urine Microscopic WBC 3-5 per hpf (0-3) H 02/08/18 08:35 Ur Squamous Epith Cells Many per lpf (None-Few) H 02/08/18 08:35 - Microbiology Findings Microbiology Findings: Microbiology, Last 48 Hours 02/10/18 16:34 Blood Culture - Preliminary Peripheral Venipuncture Culture is incubating and being continuously monitored for growth. Final report to follow. 02/08/18 08:35 Urine Culture - Final Urine,Clean Catch No growth. - Diagnostic Findings Chest x-ray: report reviewed, image reviewed Additional studies: ITS Impressions Chest X-Ray 02/08/18 20:18 IMPRESSION: Trace effusions and mild bibasilar airspace disease which could represent atelectasis or pneumonia. D/ / Lisandro Dee MD / Lisandro Dee MD Interpreting Provider: Lisandro Dee MD Abdomen/Pelvis CT 02/10/18 09:30 IMPRESSION: Limited by motion artifact and lack of IV contrast. No CT evidence of acute intra-abdominal process. Small bilateral pleural effusions with bibasilar atelectasis or pneumonia. Colonic diverticulosis. Diffuse atherosclerotic disease. Diffuse osteopenia. D/ / Efra Banuelos / Efra Banuelos Interpreting Provider: Efra Banuelos - Clinical Findings Intake & Output: Intake & Output 02/10/18 02/10/18 02/10/18 07:59 15:59 23:59 Intake Total 0 / 0 Output Total 400 / 400 0 / 0 Balance -400 / -400 0 / 0 Weight 87.3 kg Consult Discharge Plan - Plan Referrals: NONE,PCP [Primary Care Provider] - <Lindsay Lopez - Last Filed: 02/10/18 21:36> Date of Encounter: 02/10/18 All Systems: The remainder of the systems were reviewed and are negative Physical Examination Vital Signs: Vital Signs, Last 4 Hours Temp Pulse Resp BP Pulse Ox 02/10/18 21:20 75 25 131/57 100 02/10/18 21:02 74 24 101/51 97 02/10/18 20:14 99.7 F H 02/10/18 20:03 85 26 122/70 100 02/10/18 19:56 26 122/70 99 02/10/18 19:00 99.7 F H 94 23 135/67 02/10/18 18:00 93 30 145/65 100 Results - Laboratory Findings CBC and BMP: 02/10/18 16:34 02/09/18 03:32 ABG ABG pH 7.40 pH Units (7.32-7.45) 02/10/18 16:33 ABG pCO2 41 mmHg (35-45) 02/10/18 16:33 ABG pO2 61 mmHg (85-104) L 02/10/18 16:33 ABG O2 Saturation 91 % (95-98) L 02/10/18 16:33 PT/INR, D-dimer PT 17.0 Seconds (9.4-12.1) H 02/10/18 16:50 Abnormal lab findings: Abnormal lab results WBC 15.7 K/mcL (4.3-11.1) H D 02/10/18 16:34 RBC 2.46 M/mcL (3.82-4.97) L 02/10/18 16:34 Hgb 8.4 g/dL (11.5-15.4) L 02/10/18 16:34 Hct 25.5 % (35.3-44.9) L 02/10/18 16:34 MCV 103.7 fL (83.0-100.0) H 02/10/18 16:34 MCH 34.1 pg (28.0-33.3) H 02/10/18 16:34 RDW 17.2 % (11.5-14.5) H 02/10/18 16:34 Plt Count 41 K/mcL (140-400) L D 02/10/18 16:34 Immature Gran % 5.3 % (0-4) H 02/10/18 16:34 Neutrophils # 1.4 K/mcL (1.6-8.9) L 02/10/18 16:34 Lymphocytes # 6.6 K/mcL (0.6-4.6) H 02/10/18 16:34 Monocytes # 5.1 K/mcL (0.0-1.3) H 02/10/18 16:34 Eosinophils # 1.8 K/mcL (0.0-0.6) H 02/10/18 16:34 Nucleated RBCs/100 WBC 0.3 /100 WBC (0) H 02/10/18 16:34 Reactive Lymphocytes Present (Not Present) A 02/09/18 03:32 Platelet Estimate Marked Decrease (Normal) L 02/09/18 03:32 Immature Plt Fraction 6.2 % (1.1-6.1) H 02/10/18 06:00 Polychromasia 1+ (Not Present) A 02/09/18 03:32 Macrocytosis Present (Not Present) A 02/09/18 03:32 PT 17.0 Seconds (9.4-12.1) H 02/10/18 16:50 ABG pO2 61 mmHg (85-104) L 02/10/18 16:33 ABG Total CO2 27 mEq/L (20-26) H 02/10/18 16:33 ABG O2 Saturation 91 % (95-98) L 02/10/18 16:33 Sodium 135 mEq/L (136-145) L 02/09/18 03:32 Carbon Dioxide 21 mEq/L (23-29) L 02/09/18 03:32 Est GFR (Non-Af Amer) 59 (> 60) L 02/09/18 03:32 Glucose 205 mg/dL (70-105) H 02/09/18 03:32 POC Glucose 259 mg/dL (70-99) H 02/10/18 19:02 Lactic Acid 3.1 mmol/L (0.5-2.2) H 02/10/18 20:25 AST 8 Units/L (13-39) L 02/09/18 07:45 ALT 4 Units/L (7-52) L 02/09/18 07:45 Serum Total Protein 5.9 g/dL (6.4-8.9) L 02/09/18 07:45 Albumin 3.0 g/dL (3.5-5.7) L 02/09/18 07:45 Albumin/Globulin Ratio 1.0 (1.1-2.2) L 02/09/18 07:45 Urine Clarity Hazy (Clear) A 02/08/18 08:35 Ur Leukocyte Esterase Small (Negative) H 02/08/18 08:35 Urine Microscopic RBC 5-15 per hpf (0-3) H 02/08/18 08:35 Urine Microscopic WBC 3-5 per hpf (0-3) H 02/08/18 08:35 Ur Squamous Epith Cells Many per lpf (None-Few) H 02/08/18 08:35 - Microbiology Findings Microbiology Findings: Microbiology, Last 48 Hours 02/10/18 17:06 Blood Culture - Preliminary Peripheral Venipuncture Culture is incubating and being continuously monitored for growth. Final report to follow. 02/10/18 16:34 Blood Culture - Preliminary Peripheral Venipuncture Culture is incubating and being continuously monitored for growth. Final report to follow. 02/08/18 08:35 Urine Culture - Final Urine,Clean Catch No growth. - Clinical Findings Intake & Output: Intake & Output 02/10/18 02/10/18 02/10/18 07:59 15:59 23:59 Intake Total 0 / 0 480 / 480 Output Total 400 / 400 0 / 0 325 / 325 Balance -400 / -400 0 / 0 155 / 155 Weight 87.3 kg 75.7 kg - Attending Attestation I saw and evaluated this patient and my medical decision-making was reviewed with the Resident Physician. I agree with the documented findings, disposition and treatment plan as described except to the extent set forth below. We independently had [id number] contact with the patient I spent 45 minutes of Critical Care time with this patient. It involved decision making of high complexity to assess, manipulate, and support vital organ system failure and/or to prevent further life threatening deterioration of the patient's condition. The time involved in the performance of separately reportable procedures was not counted toward critical care time. Patient seen and examined at bedside Labs, radiology, chart personally reviewed. Management was reviewed during multidisciplinary critical care rounds. 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 To broaden the antibiotic coverage for possible pneumonia. Cards: Patient is hemodynamically stable with hydrostatic pulmonary edema with poor response to Lasix patient will benefit from BiPAP therapy which reduces aft erload and the. The preload. We will start on IV nitroglycerin drip which will improve the diastolic dysfunction. He should has this new onset A. fib cardiology recommended anticoagulation since patient has severe thrombocytopenia and since she is critically ill she will be needing invasive procedure like central line insertion and endotracheal intubation will hold off anticoagulant therapy as the benefit off anticoagulating is less in compared the bleeding risk. Once she is stable for the next 48 hours and will consider about Anticort ventilation. I explained the risk and benefit to the family. FEN-GI: Nothing by mouth as patient is on BiPAP. Renal: As output reviewed concerning for acute kidney injury possible tubular necrosis versus cardiorenal syndrome will try gentle diuresis ID: Chest x-ray shows bibasilar atelectasis possible pneumonia we will broaden antibiotic coverage. 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 Endo: Glucose Monitored Integ/MSK: Skin Care per routine ICU Nursing Protocol to prevent ulcers. Lines: All lines examined without evidence of infection : Dispo: Critically high chance of respiratory needing intubation . CODE: Full Code Had a lengthy discussion with family.
[2018-02-10] MEDS ORDERED: Furosemide 40 MG/4 ML VIAL IVP ONE (17:50)
--- NOTE | 2018-02-10 18:15 | Procedure Note ---
<Jonh Schafer - Last Filed: 02/10/18 18:13> Date of procedure: 02/10/18 Pre-op diagnosis: Pulmonary edema Post-op diagnosis: same Procedure: A time-out was completed verifying correct patient, procedure, site, positioning, and special equipment if applicable. The patient was placed in a dependent position appropriate for central line placement based on the vein to be cannulated. The patients right groin was prepped and draped in sterile fashion. 1% Lidocaine was used to anesthetize the surrounding skin area. A triple lumen 7-Swazi Cordis catheter was introduced into the the common femoral vein using the Seldinger technique and under ultrasound guidance. The catheter was threaded smoothly over the guide wire and appropriate blood return was obtained. Each lumen of the catheter was evacuated of air and flushed with sterile saline. The catheter was then sutured in place to the skin and a sterile dressing applied. Perfusion to the extremity distal to the point of catheter insertion was checked and found to be adequate. Attending Dr. Lopez was present for the entire procedure. Estimated Blood Loss: 0 cc The patient tolerated the procedure well and there were no complications. Anesthesia: local Surgeon: Jonh Schafer Was there an assistant account executive present: Yes Testing Engineer: Lindsay Lopez Estimated blood loss (cc): 0 Specimen: N/A Pathology: none sent Condition: critical Disposition: ICU <Lindsay Lopez - Last Filed: 02/10/18 21:18> Procedure: The right femoral vein was cannulated skillfully by the resident I helped him finding the appropriate vein using ultrasound guidance.
[2018-02-10] MEDS: Nitroglycerin 25 MG/250 ML INFUS..BTL IVC SCH (18:28)
[2018-02-10] MEDS: Cyanocobalamin (B-12) 1,000 MCG TABLET PO SCH (18:45)
[2018-02-10] MEDS: Dexmedetomidine HCl 400 MCG/100 ML MLS IVC SCH (19:12)
[2018-02-10] MEDS: traZODone 50 MG TABLET PO SCH ×2 (19:24→20:22)
[2018-02-11] MEDS ORDERED: Piperacillin/Tazobactam 3.375 GM in 0.9 % Sodium Chloride Mini Bag 100 ML IVPB SCH
[2018-02-11 03:19] LABS: Basophils % 0.2 %; Nucleated Red Blood Cells 0.6 /100 WBC (0)
[2018-02-11 03:21] LABS: Eosinophils # 1.3 K/mcL (0.0-0.6); Eosinophils % 14.4 %; Hematocrit 21.4 % (35.3-44.9); Immature Granulocytes % 0.2 % (0-4); Immature Platelets 3.7 % (1.1-6.1); Lymphocytes # 3.6 K/mcL (0.6-4.6); Lymphocytes % 40.7 %; Mean Corpuscular HGB Conc 32.7 g/dL (31.6-35.5); Mean Corpuscular Volume 103.9 fL (83.0-100.0); Mean Platelet Volume 10.6 fL (9.4-12.4); Monocytes # 2.3 K/mcL (0.0-1.3); Monocytes % 25.3 %; Neutrophils # 1.7 K/mcL (1.6-8.9); Red Blood Count 2.06 M/mcL (3.82-4.97); Red Cell Distribution Width 17.3 % (11.5-14.5); Segmented Neutrophils % 19.2 %
[2018-02-11 03:26] LABS: INR 1.5; Platelet Count 27 K/mcL (140-400); Prothrombin Time 17.1 Seconds (9.4-12.1)
[2018-02-11 03:44] LABS: Albumin 2.5 g/dL (3.5-5.7); Bilirubin,Total 0.4 mg/dL (0.3-1.0); Calcium 9.7 mg/dL (8.6-10.3); Globulin 2.6 g/dL (2.4-3.5); Magnesium 1.7 mg/dL (1.6-2.6); Phosphorous 3.9 mg/dL (2.7-4.5); Potassium 4.5 mEq/L (3.5-5.1); Total Protein 5.1 g/dL (6.4-8.9)
[2018-02-11 03:50] LABS: Platelet Estimate Marked Decrease (Normal)
[2018-02-11] MEDS: Insulin LISPRO 300 UNITS/3 ML VIAL SQ SCH ×3 (05:14→18:18)
[2018-02-11 06:44] LABS: ABG Base Excess 2 mEq/L (-2 to 3); ABG HCO3 27 mEq/L (21-27); ABG Oxygen Saturation 95 % (95-98); ABG PCO2 41 mmHg (35-45); ABG PH 7.43 pH Units (7.32-7.45); ABG PO2 73 mmHg (85-104); ABG TCO2 28 mEq/L (20-26); Blood Gas Modality avaps; Blood Gas PEEP 6 cm H2O; Blood Gas Pressure Support 30 cm H2O; Blood Gas Respiration Rate 8; Blood Gas VT 480 cc
--- NOTE | 2018-02-11 08:22 | Pulmonology Progress Note ---
<Jonh Schafer - Last Filed: 02/11/18 11:49> Date of Encounter: 02/11/18 Time of Encounter: 08:22 Assessment and Plan (1) Acute respiratory failure with hypoxemia Current Visit: Yes Status: Acute Patient admitted to the medical floor from [facility] with new onset A. fib and UTI. She had several episodes of nausea and vomiting and was given IV fluids. Critical care was consulted because she developed flash pulmonary edema. CT showed small bilateral pleural effusions with bibasilar atelectasis or pneumonia. ABG showed hypoxemia with a low SPO2's despite high flow oxygen. Patient was given Lasix and is now on nitroglycerin drip. Continue on BiPAP therapy for acute respiratory failure. Patient completed 3 days of Ceftriaxone. Antibiotics broadened secondary to concerns for pneumonia. ( Day 2 of vancomycin and Zosyn) MRSA nasal swab pending, will discontinue vancomycin if negative. (2) Pulmonary edema Current Visit: Yes Status: Acute CXR revealed worsening bibasilar atelectasis and/or pneumonia. Bilateral pleural effusions. Echo revealed LVEF 45-50%. Mild global left ventricular systolic dysfunction. Severe pulmonary hypertension. Patient given albumin and Lasix this morning. Continue nitroglycerin drip. Start Bumex 1mg BID. Continue monitoring renal function. Qualifiers: Chronicity: acute Qualified Code(s): J81.0 - Acute pulmonary edema (3) MARCELLE (acute kidney injury) Current Visit: Yes Status: Acute Patient had worsening in renal function secondary to Lasix and IV antibiotics. Patient given albumin and Lasix this morning to help with diuresis. MRSA nasal swab pending, will discontinue vancomycin if negative. Continue monitoring. (4) Thrombocytopenia Current Visit: Yes Status: Acute Likely myelodysplastic syndrome Patient also has severe thrombocytopenia and her platelet count increased to 41 after she received 2 units platelets. 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 Hemoglobin stable 7.4. No signs of active bleeding. Continue monitoring. Hematology/ oncology following (6) New onset atrial fibrillation Current Visit: Yes Status: Resolved Patient is now back in NSR. Continue beta jayant. Heparin drip was stopped for anticoagulation due to thrombocytopenia. Avoid Heparin drip due to severe thromboctyopenia and increased risks of bleeding that outweigh risk of CVA (7) UTI (urinary tract infection) Current Visit: Yes Status: Acute UA in Frio positive for nitrites in the setting of weakness, denies dysuria Elevated lactate of 3.3. Now resolved after IVF. Urine culture without growth. Patient completed 3 days of Ceftriaxone. Antibiotics broadened secondary to concerns for pneumonia. Qualifiers: Urinary tract infection type: acute cystitis Hematuria presence: without hematuria Qualified Code(s): N30.00 - Acute cystitis without hematuria (8) Hypertension Current Visit: Yes Status: Acute Blood Pressure stable. Continue beta jayant. Qualifiers: Hypertension type: essential hypertension Qualified Code(s): I10 - Essential (primary) hypertension (9) Diabetes Current Visit: Yes Status: Chronic Nothing by mouth due to possible need for intubation. Continue Accu-Cheks and SSI every 6 hours. 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 jail insulin use status Diabetes mellitus complication status: without complication Qualified Code(s): E11.9 - Type 2 diabetes mellitus without complications (10) Hypothyroid Current Visit: Yes Status: Chronic TSH WNL Continue Synthroid Qualifiers: Hypothyroidism type: acquired Qualified Code(s): E03.9 - Hypothyroidism, unspecified (11) DVT prophylaxis Current Visit: Yes Status: Acute EPCDs, avoid Heparin drip due to severe thromboctyopenia and increased risks of bleeding that outweigh risk of CVA Subjective Principal diagnosis: Shortness of breath Interval history: Patient seen and examined resting comfortably in bed wearing BiPAP. Patient denies any pain. Patient is on Precedex drip for anxiety. She is A&O 1. Patient had worsening in renal function secondary to Lasix and IV antibiotics. Patient given albumin and Lasix this morning to help with diuresis. Patient has no active signs of bleeding. Repeat hemoglobin is 7.4. Heme/oncology following for possible bone marrow biopsy. Objective PUL Vital signs: Last Vital Signs Temp 98.5 F 02/11/18 08:00 Pulse 70 02/11/18 08:00 Resp 15 02/11/18 08:00 BP 143/60 02/11/18 08:00 Pulse Ox 99 02/11/18 08:00 General appearance: no acute distress (Wearing BiPAP) Eyes: nonicteric ENT: oropharynx moist Neck: supple Effort: mildly labored Auscultation: bilateral: rales (Improved) Percussion: bilateral: not dull Cardiovascular: regular rate and rhythm Gastrointestinal: normoactive bowel sounds, soft, non-distended Integumentary: normal Extremities: no cyanosis, no clubbing, edema (1+ pedal edema) Musculoskeletal: no deformities, ROM normal non-focal exam (A&O 1) affect normal, anxious Ventilator Settings Ventilator Settings: Ventilator Settings, Last 8 Hours Ventilator Tidal Volume 480 Setting Ventilator Respiratory Rate 8 Setting Results - Laboratory Findings CBC and BMP: 02/11/18 10:20 02/11/18 03:00 ABG ABG pH 7.43 pH Units (7.32-7.45) 02/11/18 06:42 ABG pCO2 41 mmHg (35-45) 02/11/18 06:42 ABG pO2 73 mmHg (85-104) L 02/11/18 06:42 ABG O2 Saturation 95 % (95-98) 02/11/18 06:42 PT/INR, D-dimer PT 17.1 Seconds (9.4-12.1) H 02/11/18 03:00 Abnormal lab findings: Abnormal lab results RBC 2.06 M/mcL (3.82-4.97) L 02/11/18 03:00 Hgb 7.0 g/dL (11.5-15.4) L 02/11/18 03:00 Hct 21.4 % (35.3-44.9) L 02/11/18 03:00 MCV 103.9 fL (83.0-100.0) H 02/11/18 03:00 MCH 34.0 pg (28.0-33.3) H 02/11/18 03:00 RDW 17.3 % (11.5-14.5) H 02/11/18 03:00 Plt Count 27 K/mcL (140-400) L* 02/11/18 03:00 Monocytes # 2.3 K/mcL (0.0-1.3) H 02/11/18 03:00 Eosinophils # 1.3 K/mcL (0.0-0.6) H 02/11/18 03:00 Nucleated RBCs/100 WBC 0.6 /100 WBC (0) H 02/11/18 03:00 Reactive Lymphocytes Present (Not Present) A 02/09/18 03:32 Platelet Estimate Marked Decrease (Normal) L 02/11/18 03:00 Polychromasia 1+ (Not Present) A 02/09/18 03:32 Macrocytosis Present (Not Present) A 02/09/18 03:32 PT 17.1 Seconds (9.4-12.1) H 02/11/18 03:00 ABG pO2 73 mmHg (85-104) L 02/11/18 06:42 ABG Total CO2 28 mEq/L (20-26) H 02/11/18 06:42 Sodium 135 mEq/L (136-145) L 02/11/18 03:00 Creatinine 1.50 mg/dL (0.60-1.20) H 02/11/18 03:00 Est GFR ( Amer) 40 (> 60) L 02/11/18 03:00 Est GFR (Non-Af Amer) 33 (> 60) L 02/11/18 03:00 Glucose 210 mg/dL (70-105) H 02/11/18 03:00 POC Glucose 202 mg/dL (70-99) H 02/11/18 05:14 AST 8 Units/L (13-39) L 02/11/18 03:00 ALT 4 Units/L (7-52) L 02/11/18 03:00 B-Natriuretic Peptide 611 pg/mL (Less than 100) H 02/11/18 03:00 Serum Total Protein 5.1 g/dL (6.4-8.9) L 02/11/18 03:00 Albumin 2.5 g/dL (3.5-5.7) L 02/11/18 03:00 Albumin/Globulin Ratio 1.0 (1.1-2.2) L 02/11/18 03:00 Urine Clarity Hazy (Clear) A 02/08/18 08:35 Ur Leukocyte Esterase Small (Negative) H 02/08/18 08:35 Urine Microscopic RBC 5-15 per hpf (0-3) H 02/08/18 08:35 Urine Microscopic WBC 3-5 per hpf (0-3) H 02/08/18 08:35 Ur Squamous Epith Cells Many per lpf (None-Few) H 02/08/18 08:35 - Microbiology Findings Microbiology Findings: Microbiology, Last 48 Hours 02/10/18 17:06 Blood Culture - Preliminary Peripheral Venipuncture Culture is incubating and being continuously monitored for growth. Final report to follow. 02/10/18 16:34 Blood Culture - Preliminary Peripheral Venipuncture Culture is incubating and being continuously monitored for growth. Final report to follow. 02/08/18 08:35 Urine Culture - Final Urine,Clean Catch No growth. - Diagnostic Findings Chest x-ray: report reviewed, image reviewed Additional studies: ITS Impressions Abdomen/Pelvis CT 02/10/18 09:30 IMPRESSION: Limited by motion artifact and lack of IV contrast. No CT evidence of acute intra-abdominal process. Small bilateral pleural effusions with bibasilar atelectasis or pneumonia. Colonic diverticulosis. Diffuse atherosclerotic disease. Diffuse osteopenia. D/ / Efra Banuelos / Efra Banuelos Interpreting Provider: Efra Banuelos Echocardiogram 02/10/18 11:44 Impressions: LVEF 45-50%. Mild global left ventricular systolic dysfunction. Indeterminate diastolic function. Normal right ventricular structure and function. Mildly dilated left atrium. Mild mitral regurgitation. Moderate tricuspid regurgitation. Severe pulmonary hypertension. LVEF may be underestimated due to Afib RVR, recommend limited echo with definity after rate control. Left Ventricular Wall Motion: Rest Echo Findings The apex, apical inferior, mid inferior, basal inferior, apical anterior, mid anterior, basal anterior, apical septal, mid inferior septal, basal inferior septal, apical lateral, mid anterior lateral, basal anterior lateral, mid anterior septal, mid inferior lateral, basal anterior septal and basal inferior lateral ignacio were hypokinetic. Findings: Study Quality * Technically adequate exam. ECG Findings * Atrial fibrillation, BBB. Left Ventricle * Normal LV chamber size, wall thickness. * Indeterminate diastolic function. * Atypical septal motion consistent with bundle branch block. * LVEF 45-50%. * Mild global left ventricular systolic dysfunction. Right Ventricle * Normal right ventricular structure and function. Left Atrium * Mildly dilated left atrium. Right Atrium * Normal right atrial size. Interatrial Septum * Interatrial septum not well evaluated. Aortic Valve * Trileaflet aortic valve. * Moderately calcified aortic valve leaflets. * No aortic stenosis. * No aortic regurgitation. Mitral Valve * Moderately calcified mitral valve leaflets. * Mild mitral regurgitation. * No mitral stenosis. Tricuspid Valve * Normal tricuspid valve structure. * No tricuspid stenosis. * Moderate tricuspid regurgitation. * Estimated RVSP is 65 mmHg. * Estimated RA pressure is 8 mmHg. * Severe pulmonary hypertension. Pulmonic Valve * Pulmonic valve is not well visualized. * No pulmonic stenosis. * Trace pulmonic regurgitation. Aorta * Normally sized aortic root. Pericardium * The pericardium appears normal. IVC * Normal IVC dimensions and inspiratory collapse. Chest X-Ray 02/11/18 04:00 IMPRESSION: Worsening bibasilar atelectasis and/or pneumonia. Bilateral pleural effusions. D/ / Tay Gibbons MD / Tay Gibbons MD Interpreting Provider: Tay Gibbons MD - Clinical Findings Intake & Output: Intake & Output 02/10/18 02/11/18 02/11/18 23:59 07:59 15:59 Intake Total 730 / 730 100 / 100 Output Total 325 / 325 100 / 100 Balance 405 / 405 0 / 0 Weight 75.7 kg Consult Discharge Plan - Plan Referrals: NONE,PCP [Primary Care Provider] - <Lindsay Lopez - Last Filed: 02/11/18 16:48> Date of Encounter: 02/11/18 Objective PUL Vital signs: Last Vital Signs Temp 98.6 F 02/11/18 15:10 Pulse 84 02/11/18 16:00 Resp 30 02/11/18 16:00 BP 127/49 02/11/18 16:00 Pulse Ox 92 02/11/18 16:00 Results - Laboratory Findings CBC and BMP: 02/11/18 10:20 02/11/18 03:00 ABG ABG pH 7.43 pH Units (7.32-7.45) 02/11/18 06:42 ABG pCO2 41 mmHg (35-45) 02/11/18 06:42 ABG pO2 73 mmHg (85-104) L 02/11/18 06:42 ABG O2 Saturation 95 % (95-98) 02/11/18 06:42 PT/INR, D-dimer PT 17.1 Seconds (9.4-12.1) H 02/11/18 03:00 Abnormal lab findings: Abnormal lab results RBC 2.06 M/mcL (3.82-4.97) L 02/11/18 03:00 Hgb 7.4 g/dL (11.5-15.4) L 02/11/18 10:20 Hct 22.6 % (35.3-44.9) L 02/11/18 10:20 MCV 103.9 fL (83.0-100.0) H 02/11/18 03:00 MCH 34.0 pg (28.0-33.3) H 02/11/18 03:00 RDW 17.3 % (11.5-14.5) H 02/11/18 03:00 Plt Count 27 K/mcL (140-400) L* 02/11/18 03:00 Monocytes # 2.3 K/mcL (0.0-1.3) H 02/11/18 03:00 Eosinophils # 1.3 K/mcL (0.0-0.6) H 02/11/18 03:00 Nucleated RBCs/100 WBC 0.6 /100 WBC (0) H 02/11/18 03:00 Reactive Lymphocytes Present (Not Present) A 02/09/18 03:32 Platelet Estimate Marked Decrease (Normal) L 02/11/18 03:00 Polychromasia 1+ (Not Present) A 02/09/18 03:32 Macrocytosis Present (Not Present) A 02/09/18 03:32 PT 17.1 Seconds (9.4-12.1) H 02/11/18 03:00 ABG pO2 73 mmHg (85-104) L 02/11/18 06:42 ABG Total CO2 28 mEq/L (20-26) H 02/11/18 06:42 Sodium 135 mEq/L (136-145) L 02/11/18 03:00 Creatinine 1.50 mg/dL (0.60-1.20) H 02/11/18 03:00 Est GFR ( Amer) 40 (> 60) L 02/11/18 03:00 Est GFR (Non-Af Amer) 33 (> 60) L 02/11/18 03:00 Glucose 210 mg/dL (70-105) H 02/11/18 03:00 POC Glucose 171 mg/dL (70-99) H 02/11/18 11:01 AST 8 Units/L (13-39) L 02/11/18 03:00 ALT 4 Units/L (7-52) L 02/11/18 03:00 B-Natriuretic Peptide 611 pg/mL (Less than 100) H 02/11/18 03:00 Serum Total Protein 5.1 g/dL (6.4-8.9) L 02/11/18 03:00 Albumin 2.5 g/dL (3.5-5.7) L 02/11/18 03:00 Albumin/Globulin Ratio 1.0 (1.1-2.2) L 02/11/18 03:00 Urine Clarity Hazy (Clear) A 02/08/18 08:35 Ur Leukocyte Esterase Small (Negative) H 02/08/18 08:35 Urine Microscopic RBC 5-15 per hpf (0-3) H 02/08/18 08:35 Urine Microscopic WBC 3-5 per hpf (0-3) H 02/08/18 08:35 Ur Squamous Epith Cells Many per lpf (None-Few) H 02/08/18 08:35 - Microbiology Findings Microbiology Findings: Microbiology, Last 48 Hours 02/10/18 17:06 Blood Culture - Preliminary Peripheral Venipuncture Culture is incubating and being continuously monitored for growth. Final report to follow. 02/10/18 16:34 Blood Culture - Preliminary Peripheral Venipuncture Culture is incubating and being continuously monitored for growth. Final report to follow. - Clinical Findings Intake & Output: Intake & Output 02/11/18 02/11/18 02/11/18 07:59 15:59 23:59 Intake Total 100 / 100 420 / 420 Output Total 100 / 100 100 / 100 Balance 0 / 0 320 / 320 - Attending Attestation - Attending Attestation I saw and evaluated this patient and my medical decision-making was reviewed with the Resident Physician. I agree with the documented findings, disposition and treatment plan as described except to the extent set forth below. We independently had [id number] contact with the patient I spent 35 minutes of Critical Care time with this patient. It involved decision making of high complexity to assess, manipulate, and support vital organ system failure and/or to prevent further life threatening deterioration of the patient's condition. The time involved in the performance of separately reportable procedures was not counted toward critical care time. Patient seen and examined at bedside Labs, radiology, chart personally reviewed. Management was reviewed during multidisciplinary critical care rounds. FLOUR BROKER: Patient conscious following commands with episodic confusionk most likely due to toxic/metabolic encephalopathy secondary to hypoxic respiratory failure Pulm: Developed worsening hypoxic respiratory failure most likely due to fluid overload hydrostatic pulmonary edema and possible pneumonia patient is resp onding well to BiPAP if she fails BiPAP she will need endotracheal intubation and mechanical ventilation I spoke extensively with patient and her daughter patient willing to try invasive measures if needed. To broaden the antibiotic coverage for possible pneumonia. 02/11 patient is responding well to BiPAP will continue aggressive diuresis as left ventricle end-diastolic pressure was high in the echocardiogram according to cardiology. To continue broad-spectrum antibiotics for pneumonia to continue the current BiPAP settings. Cards: Patient is hemodynamically stable with hydrostatic pulmonary edema with poor response to Lasix patient will benefit from BiPAP therapy which reduces afterload and the. The preload. We will start on IV nitroglycerin drip which will improve the diastolic dysfunction. He should has this new onset A. fib cardiology recommended anticoagulation since patient has severe thrombocytopenia and since she is critically ill she will be needing invasive procedure like central line insertion and endotracheal intubation will hold off anticoagulant therapy as the benefit off anticoagulating is less in compared the bleeding risk. Once she is stable for the next 48 hours and will consider about Anticoagulation I explained the risk and benefit to the family. 02/11 discuss with cardiology appreciate input since patient is in sinus rhythm she no longer needs any anticoagulation. Patient is hemodynamically stable to continue nitroglycerin drip in the light of pulmonary edema. FEN-GI: Nothing by mouth as patient is on BiPAP. Renal: As output reviewed concerning for acute kidney injury possible tubular necrosis versus cardiorenal syndrome will try gentle diuresis should not left ventricular end-diastolic pressure is high. ID: Chest x-ray shows bibasilar atelectasis possible pneumonia to continue broad spectrum antibiotics. Heme/Onc: presented with thrombocytopenia appreciate principal system software engineer input most likely myelodysplastic syndrome might need bone marrow biopsy once stable. Patient might have long-term poor prognosis as patient thrombocytopenia is not responding to platelet transfusion. Endo: Glucose Monitored Integ/MSK: Skin Care per routine ICU Nursing Protocol to prevent ulcers. Lines: All lines examined without evidence of infection : Dispo: Critically high chance of respiratory needing intubation . CODE: Full Code Had a lengthy discussion with family.
[2018-02-11] MEDS ORDERED: Furosemide 40 MG/4 ML VIAL IVP ONE (09:00)
[2018-02-11] MEDS: Valsartan 160 MG TABLET PO SCH (09:01)
[2018-02-11] MEDS: amLODIPine 5 MG TABLET PO SCH (09:01)
[2018-02-11] MEDS: Metoprolol XL (24 HR) Succ 50 MG TAB.ER.24H PO SCH (09:01)
[2018-02-11] MEDS: Cyanocobalamin (B-12) 1,000 MCG TABLET PO SCH (09:03)
[2018-02-11 10:32] LABS: Hematocrit 22.6 % (35.3-44.9); Hemoglobin 7.4 g/dL (11.5-15.4)
[2018-02-11] MEDS: Piperacillin/Tazobactam 3.375 GM in 0.9 % Sodium Chloride Mini Bag 100 ML IVPB SCH ×2 (12:05→23:06)
[2018-02-11] MEDS: Dexmedetomidine HCl 400 MCG/100 ML MLS IVC SCH (13:28)
--- NOTE | 2018-02-11 13:28 | Cardiology Consult Note ---
<Rhonda Ross - Last Filed: 02/11/18 13:24> Date of Encounter: 02/11/18 Time of Encounter: 13:00 Assessment and Plan (1) Pulmonary edema Current Visit: Yes Status: Acute Per cardiology: -Episode of flash pulmonary edema yesterday. Reports imporvemnt today. -On bipap. -Remains volume overloaded on exam. -Started on IV bumex per critical care team. On nitro drip. -Suspect diastolic CHF. -TTE with LVEF 45-50%, however pateint tachcyardic during TTE. -AGree with IV diuresis. -Strict i/os, fluid restriction, daily weight. -Will repeat limited TTE today with definity to assess LVEF. -Ok to continue nitro drip, if BP tolerates, until respiratory status imrpoves. Qualifiers: Chronicity: acute Qualified Code(s): J81.0 - Acute pulmonary edema (2) Tachycardia Current Visit: Yes Status: Acute Per cardiology: -ECGs, telemetry, and TTE ECG reviewed with at length, no convincing evidence of a.fib. Difficult to determine due to frequent PACs. -Currently SR, HR controlled. On BB. -Continue telemetry. -Of note, would not be a candidate for anticoagulation due to pancytopenia. Again, no convincing evidence of a.fib. (3) Thrombocytopenia Current Visit: Yes Status: Acute Per cardiology: -Pancytopenia. -hematology following. -Management per primary and hematology services. Discussion w patient/family: The assessment and plan as outlined above was discussed with the patient who expressed understanding and agreement. All questions were answered. Thank you for involving us in the care of your patient. Please call with any questions. Discussed and reviewed with . History of Present Illness Consult date: 02/10/19 Requesting physician: Emma Maldonado Consult reason: new a.fib Chief complaint: weakness History of present illness: Ms. Bautista is a 87 year old female with a relevant past medical history of CHF, thrombocytopenia, HTN, DM, thyroid disease who intially presented to [place] with weakness for several days. Patient was then transferred to [facility]. Patient was being treated for pneumonia and UTI. Yesterday had episode of flash pulmonary edema and was transferred to ICU. Patient currrently in ICU on Bipap. Reports shortness of breath improving. Denies chest pain. Denies palpitations or fluttering. Past Med Surg Social Fam HX - Past Medical History Attestation: Yes The following information was validated with the patient. Source: patient, old records reviewed Medical history: CHF, diabetes, hypertension, thyroid disease - Past Surgical History Surgical History: cholecystectomy, hysterectomy, thyroidectomy - Social History Smoking Status: Never smoker Smokeless Tobacco Status: No Alcohol use: none Drug use: none Medications and Allergies Acetaminophen [Tylenol] 650 mg PO Q6HR PRN 02/07/18 [History] Amlodipine/Valsartan [Exforge 10-320 mg Tablet] 1 tab PO DAILY 02/07/18 [History] Cholecalciferol (Vitamin D3) [Decara] 10,000 unit PO MO 02/07/18 [History] Cranberry Fruit Extract [Cranberry] 400 mg PO TID 02/07/18 [History] Cyanocobalamin (B-12) [Vitamin B12] 1,000 mcg IM QMONTH 02/07/18 [History] Cyanocobalamin (Vitamin B-12) [Vitamin B12] 500 mcg PO DAILY 02/07/18 [History] Fesoterodine Fumarate [Toviaz] 8 mg PO DAILY 02/07/18 [History] Glimepiride [Amaryl] 1 mg PO DAILY 02/07/18 [History] Levothyroxine Sodium [Levoxyl] 75 mcg PO DAILY 02/07/18 [History] Metoprolol Succinate [Toprol Xl] 100 mg PO DAILY 02/07/18 [History] Trazodone HCl 100 mg PO HS 02/07/18 [History] metFORMIN [Glucophage] 500 mg PO DAILY 02/07/18 [History] Allergy/AdvReac Type Severity Reaction Status Date / Time No Known Allergies Allergy Verified 02/08/18 01:33 All Systems Review: The remainder of the systems were reviewed and are negative - Constitutional Constitutional: weakness - Cardiovascular Cardiovascular: as per HPI, dyspnea at rest, dyspnea on exertion Physical Examination Vital Signs, Last 4 Hours Temp Pulse Resp BP Pulse Ox 02/11/18 12:00 72 23 97 02/11/18 11:55 20 147/60 95 02/11/18 11:04 98.7 F 02/11/18 10:00 70 20 135/57 95 General: Conversant, No Apparent Distress HEENT: Atraumatic, Normocephaly, Mucus Membranes Moist Neck: No JVD, Normal carotid pulses Cardiac: Reg Rate and Rhythm, Normal S1 and S2, No Murmur Lungs: Other (Crackles noted to bilateral lung bases. On bipap. ) Neuro: Alert and responsive, No focal deficits noted Abdomen: Soft, Non-Tender Skin: No rashes noted on visualized skin Musculoskeletal: No Chest Wall Tenderness Extremities: No Clubbing, No Cyanosis, Normal Pulses, Other (Mild bilateral low er extremity edema, non-pitting. ) Results 02/11/18 10:20 02/11/18 03:00 Lab Results Impressions Echocardiogram 02/10/18 11:44 Impressions: LVEF 45-50%. Mild global left ventricular systolic dysfunction. Indeterminate diastolic function. Normal right ventricular structure and function. Mildly dilated left atrium. Mild mitral regurgitation. Moderate tricuspid regurgitation. Severe pulmonary hypertension. LVEF may be underestimated due to Afib RVR, recommend limited echo with definity after rate control. Left Ventricular Wall Motion: Rest Echo Findings The apex, apical inferior, mid inferior, basal inferior, apical anterior, mid anterior, basal anterior, apical septal, mid inferior septal, basal inferior septal, apical lateral, mid anterior lateral, basal anterior lateral, mid anterior septal, mid inferior lateral, basal anterior septal and basal inferior lateral ignacio were hypokinetic. Findings: Study Quality * Technically adequate exam. ECG Findings * Atrial fibrillation, BBB. Left Ventricle * Normal LV chamber size, wall thickness. * Indeterminate diastolic function. * Atypical septal motion consistent with bundle branch block. * LVEF 45-50%. * Mild global left ventricular systolic dysfunction. Right Ventricle * Normal right ventricular structure and function. Left Atrium * Mildly dilated left atrium. Right Atrium * Normal right atrial size. Interatrial Septum * Interatrial septum not well evaluated. Aortic Valve * Trileaflet aortic valve. * Moderately calcified aortic valve leaflets. * No aortic stenosis. * No aortic regurgitation. Mitral Valve * Moderately calcified mitral valve leaflets. * Mild mitral regurgitation. * No mitral stenosis. Tricuspid Valve * Normal tricuspid valve structure. * No tricuspid stenosis. * Moderate tricuspid regurgitation. * Estimated RVSP is 65 mmHg. * Estimated RA pressure is 8 mmHg. * Severe pulmonary hypertension. Pulmonic Valve * Pulmonic valve is not well visualized. * No pulmonic stenosis. * Trace pulmonic regurgitation. Aorta * Normally sized aortic root. Pericardium * The pericardium appears normal. IVC * Normal IVC dimensions and inspiratory collapse. ADDENDUM: 02/11/18 1239 Impressions: LVEF 45-50%. Mild global left ventricular systolic dysfunction. Indeterminate diastolic function. Normal right ventricular structure and function. Mildly dilated left atrium. Mild mitral regurgitation. Moderate tricuspid regurgitation. Severe pulmonary hypertension. LVEF may be underestimated due to tachycardia, recommend repeat limited echo with definity after rate control. Left Ventricular Wall Motion: Rest Echo Findings The apex, apical inferior, mid inferior, basal inferior, apical anterior, mid anterior, basal anterior, apical septal, mid inferior septal, basal inferior septal, apical lateral, mid anterior lateral, basal anterior lateral, mid anterior septal, mid inferior lateral, basal anterior septal and basal inferior lateral ignacio were hypokinetic. Findings: Study Quality * Technically adequate exam. ECG Findings * Sinus rhythm with PACs, tachycardia, BBB. Left Ventricle * Normal LV chamber size, wall thickness. * Indeterminate diastolic function. * Atypical septal motion consistent with bundle branch block. * LVEF 45-50%. * Mild global left ventricular systolic dysfunction. Right Ventricle * Normal right ventricular structure and function. Left Atrium * Mildly dilated left atrium. Right Atrium * Normal right atrial size. Interatrial Septum * Interatrial septum not well evaluated. Aortic Valve * Trileaflet aortic valve. * Moderately calcified aortic valve leaflets. * No aortic stenosis. * No aortic regurgitation. Mitral Valve * Moderately calcified mitral valve leaflets. * Mild mitral regurgitation. * No mitral stenosis. Tricuspid Valve * Normal tricuspid valve structure. * No tricuspid stenosis. * Moderate tricuspid regurgitation. * Estimated RVSP is 65 mmHg. * Estimated RA pressure is 8 mmHg. * Severe pulmonary hypertension. Pulmonic Valve * Pulmonic valve is not well visualized. * No pulmonic stenosis. * Trace pulmonic regurgitation. Aorta * Normally sized aortic root. Pericardium * The pericardium appears normal. IVC * Normal IVC dimensions and inspiratory collapse. Chest X-Ray 02/11/18 04:00 IMPRESSION: Worsening bibasilar atelectasis and/or pneumonia. Bilateral pleural effusions. D/ / Tay Gibbons MD / Tay Gibbons MD Interpreting Provider: Tay Gibbons MD Active Medications Acetaminophen (Tylenol) 650 mg PO Q6HR PRN PRN Reason: Mild Pain/Fever Stop: 08/09/18 21:27 Last Admin: 02/08/18 18:01 Dose: 650 mg Amlodipine Besylate (Norvasc) 10 mg PO DAILY [facility] Stop: 08/10/18 09:01 Last Admin: 02/11/18 09:01 Dose: 10 mg Bumetanide (Bumex) 1 mg IVP BIDDIURETIC [facility] Stop: 08/13/18 17:01 Cyanocobalamin (Vitamin B12) 1,000 mcg PO DAILY [facility] Stop: 08/12/18 13:01 Last Admin: 02/11/18 09:03 Dose: 1,000 mcg Dextrose/Water (Dextrose 50% (Syg)) 25 ml IVP AD PRN PRN Reason: Hypoglycemia Stop: 08/09/18 21:44 Glucagon (Glucagen) 1 mg IM ONCE PRN PRN Reason: Hypoglycemia Stop: 08/09/18 21:44 Glucose (Gluctose) 15 gm PO ONCE PRN PRN Reason: Hypoglycemia Stop: 08/09/18 21:44 Glucose (Gluctose) 30 gm PO ONCE PRN PRN Reason: Hypoglycemia Stop: 08/09/18 21:44 Dextrose (Dextrose 5%) 1,000 mls @ 100 mls/hr IVC .Q10H PRN PRN Reason: HYPOGLYCEMIA Stop: 08/09/18 21:44 Dexmedetomidine HCl (Precedex Premix) 400 mcg in 100 mls @ 4.365 mls/hr IVC .[id number] [facility]; Protocol Stop: 08/12/18 17:31 Last Admin: 02/10/18 19:12 Dose: 0.2 mcg/kg/hr, 4.365 mls/hr Nitroglycerin (Nitroglycerin Premix 25 Mg/250 Ml) 25 mg in 250 mls @ 3 mls/hr IVC .Q24H [facility]; Protocol Stop: 08/12/18 18:16 Last Titration: 02/11/18 12:05 Dose: 10 mcg/min, 6 mls/hr Piperacillin Sod/Tazobactam (Sod 3.375 gm/ Sodium Chloride) 100 mls @ 25 mls/hr IVPB Q12H [facility] Stop: 08/13/18 12:01 Last Admin: 02/11/18 12:05 Dose: 25 mls/hr Insulin Human Lispro (Humalog) 0 units SQ Q6HR [facility]; Protocol Stop: 08/13/18 00:01 Last Admin: 02/11/18 12:04 Dose: 2 units Levothyroxine Sodium (Synthroid) 75 mcg PO 0630 [facility] Stop: 08/10/18 06:31 Last Admin: 02/11/18 05:14 Dose: 75 mcg Metoprolol Succinate (Toprol Xl) 100 mg PO DAILY [facility] Stop: 08/10/18 09:01 Last Admin: 02/11/18 09:01 Dose: 100 mg Naloxone HCl (Narcan) 0.4 mg IVP Q2MIN PRN PRN Reason: SEE COMMENTS Stop: 08/09/18 21:27 Ondansetron HCl (Zofran) 4 mg IVP Q6HR PRN; Protocol PRN Reason: Nausea/Vomiting Stop: 08/10/18 17:39 Last Admin: 02/10/18 16:24 Dose: 4 mg Simethicone (Gas-X) 80 mg PO TID PRN PRN Reason: Dyspepsia Stop: 08/09/18 23:28 Last Admin: 02/09/18 14:01 Dose: 80 mg Tramadol HCl (Ultram) 50 mg PO Q6HR PRN PRN Reason: Moderate Pain Stop: 08/09/18 21:27 Trazodone HCl (Trazodone) 100 mg PO HS [facility] Stop: 08/11/18 21:01 Last Admin: 02/10/18 20:22 Dose: 100 mg Valsartan (Diovan) 320 mg PO DAILY [facility] Stop: 08/10/18 09:01 Last Admin: 02/11/18 09:01 Dose: 320 mg Vancomycin HCl (Vancocin) 1 each IVPB RPHPROT PRN PRN Reason: PULSE DOSE Stop: 08/13/18 05:27 Laboratory Tests 02/08/18 02/08/18 02/09/18 00:21 00:21 03:32 Hgb Plt Count 18 L* Creatinine 0.91 B-Natriuretic Peptide TSH 2.288 02/11/18 02/11/18 02/11/18 03:00 03:00 03:00 Hgb 7.0 L Plt Count 27 L* Creatinine 1.50 H B-Natriuretic Peptide 611 H TSH - Imaging and Cardiology Chest Xray: report reviewed Echo: pending, report reviewed - EKG Interpretation EKG results cardiology: personally reviewed (ECG with ST, HR 120.), other (Telemetry reviewed with average HR previous 12 hours noted to be 67, SR. PVCs and PACs noted.) Consult Discharge Plan - Plan Referrals: NONE,PCP [Primary Care Provider] - <Chrissy Oleary - Last Filed: 02/11/18 17:15> Date of Encounter: 02/11/18 - Attending Attestation Patient was seen and evaluated independently by me. Findings, assessment and plan were discussed at length with patient, questions answered. Agree with nurse practitioner's/resident's documentation. Addition as follows, 87yoCF ho bicytopenia (PLT, RBC), HFpEF, HTN, hypothyroidism p/w fatigue, Imp PNA, UTI. Consulted for "new Afib". Review of ECGs and Tele revealed intermittent S tachy, frequent PACs, no evidence of Afib. Pulmonary edema after PLT transfusion requiring BiPAP, aggressive pre-load reduction. TTE preserved EF, nl RV, mild TR, severe PH. Hypoxemia, ADHF/high pre-load/PH improved after ICU intervention. A: Intermittent sinus tachycardia with frequent PACs No evidence of atrial fibrillation ADHF, HFpEF, moderate hypervolemia, pleural effusion SIRS Bicytopenia, volume overload to transfusion MARCELLE P: no anticoagulation preload reduction via diuresis/NTG/PAP c/w BB Chrissy Oleary MD, PhD Assessment and Plan Discussion w patient/family: The assessment and plan as outlined above was discussed with the patient and/or family members who expressed understanding and agreement. All questions were answered. Thank you for involving us in the care of your patient. Please call with any questions. History of Present Illness History of present illness: Ms. Bautista is a 87 year old female All Systems Review: The remainder of the systems were reviewed and are negative Physical Examination Vital Signs, Last 4 Hours Temp Pulse Resp BP Pulse Ox 02/11/18 16:00 84 30 127/49 92 02/11/18 15:10 98.6 F 02/11/18 15:00 75 26 147/67 95 02/11/18 14:00 69 20 132/62 96 02/11/18 13:00 72 20 133/60 97 Results 02/11/18 10:20 02/11/18 03:00 Lab Results 02/10/18 02/10/18 02/10/18 16:34 16:34 16:50 WBC 15.7 H D Hgb 8.4 L Hct 25.5 L Plt Count 41 L D INR 1.5 Sodium Potassium Chloride Carbon Dioxide BUN Creatinine Glucose Calcium Magnesium Total Bilirubin AST ALT Alkaline Phosphatase B-Natriuretic Peptide 578 H 02/11/18 02/11/18 02/11/18 03:00 03:00 03:00 WBC 8.9 Hgb 7.0 L Hct 21.4 L Plt Count 27 L* INR 1.5 Sodium 135 L Potassium 4.5 Chloride 102 Carbon Dioxide 25 BUN 23 Creatinine 1.50 H Glucose 210 H Calcium 9.7 Magnesium 1.7 Total Bilirubin 0.4 AST 8 L ALT 4 L Alkaline Phosphatase 52 B-Natriuretic Peptide 02/11/18 02/11/18 03:00 10:20 WBC Hgb 7.4 L Hct 22.6 L Plt Count INR Sodium Potassium Chloride Carbon Dioxide BUN Creatinine Glucose Calcium Magnesium Total Bilirubin AST ALT Alkaline Phosphatase B-Natriuretic Peptide 611 H
[2018-02-11] MEDS ORDERED: Perflutren Lipid Microsphere 2 ML VIAL ONE (14:38)
[2018-02-11] MEDS: Bumetanide 1 MG/4 ML VIAL IVP SCH (17:29)
[2018-02-11] MEDS: traZODone 50 MG TABLET PO SCH (20:28)
[2018-02-11] MEDS ORDERED: Aminoglycoside Consult 1 EACH MC ONE (21:07)
[2018-02-11] MEDS: Acetaminophen 325 MG TABLET PO PRN (23:59)
[2018-02-12] MEDS: Insulin LISPRO 300 UNITS/3 ML VIAL SQ SCH ×4 (00:12→17:59)
[2018-02-12] MEDS: Dexmedetomidine HCl 400 MCG/100 ML MLS IVC SCH ×3 (03:22→20:27)
[2018-02-12 04:23] LABS: Mean Corpuscular Hemoglobin 34.3 pg (28.0-33.3); Nucleated Red Blood Cells 0.4 /100 WBC (0)
[2018-02-12 04:26] LABS: Hematocrit 21.8 % (35.3-44.9); Hemoglobin 7.1 g/dL (11.5-15.4); Immature Platelets 5.3 % (1.1-6.1); Mean Corpuscular HGB Conc 32.6 g/dL (31.6-35.5); Mean Corpuscular Volume 105.3 fL (83.0-100.0); Mean Platelet Volume 10.8 fL (9.4-12.4); Red Blood Count 2.07 M/mcL (3.82-4.97); Red Cell Distribution Width 17.2 % (11.5-14.5)
[2018-02-12 04:29] LABS: Potassium 3.9 mEq/L (3.5-5.1)
[2018-02-12 04:50] LABS: Platelet Count 25 K/mcL (140-400)
[2018-02-12 05:26] LABS: Eosinophils # 1.2 K/mcL (0.0-0.6); Lymphocytes # 7.8 K/mcL (0.6-4.6); Monocytes # 0.2 K/mcL (0.0-1.3); Neutrophils # 0.8 K/mcL (1.6-8.9)
[2018-02-12 05:31] LABS: Anisocytosis 1+ (Not Present); Macrocytosis Present (Not Present); Platelet Estimate Marked Decrease (Normal)
[2018-02-12 05:32] LABS: Microcytosis Present (Not Present); Poikilocytosis 1+ (Not Present); Polychromasia 1+ (Not Present)
[2018-02-12] MEDS: traMADol 50 MG TABLET PO PRN ×2 (06:20→16:11)
--- NOTE | 2018-02-12 08:28 | Pulmonology Progress Note ---
<Jonh Schafer - Last Filed: 02/12/18 16:21> Date of Encounter: 02/12/18 Time of Encounter: 08:27 Assessment and Plan (1) Thrombocytopenia Status: Acute Likely secondary to myelodysplastic syndrome Patient also has severe thrombocytopenia and her platelet count slightly increased after she received 2 units platelets. No active signs of bleeding Hematology/ oncology is following and recommended bone marrow biopsy. Patient is on BiPap and unable to lay prone for the procedure, which is required by [facility]. Given the severity of the patient's flash pulmonary edema, inability to adequately diuresis her due to worsening renal function, and significant thrombocytopenia, her family would like the patient transferred to a tertiary care center for hemato-pathologlogy workup to obtain a definitive diagnosis. Anticipate transfer to [facility] once ICU bed is available. (2) Acute respiratory failure with hypoxemia Status: Acute Patient developed flash pulmonary edema due to IV fluids and platelet transfusion. CT showed small bilateral pleural effusions with bibasilar atelectasis or pneumo lara. ABG showed hypoxemia with a low SPO2's despite high flow oxygen. Patient was previously given Lasix. She is now on nitroglycerin drip and Bumex. Continue on BiPAP therapy for acute respiratory failure. Patient completed 3 days of Ceftriaxone. Antibiotics were broadened secondary to concerns for pneumonia. ( Day 3 of Zosyn) Renally dose antibiotics. MRSA nasal swab negative. (3) Pulmonary edema Status: Acute CXR revealed worsening bibasilar atelectasis and/or pneumonia. Bilateral pleural effusions. Echo revealed LVEF 55-60% and moderate pulmonary hypertension. Patient given albumin and Lasix 02/11/17. Repeat CXR reveals worsening bilateral pleural effusions. Bibasilar atelectasis. Right lower lobe opacity may represent consolidation from pneumonia. Continue Bumex 1mg BID. Continue BiPap and nitroglycerin drip. Qualifiers: Chronicity: acute Qualified Code(s): J81.0 - Acute pulmonary edema (4) MARCELLE (acute kidney injury) Status: Acute Patient had worsening in renal function secondary to diuretics and IV antibiotics. MRSA nasal swab negative, discontinued vancomycin and ARB. Continue gentle diuresis and renally dosed antibiotics. Continue monitoring. (5) UTI (urinary tract infection) Status: Acute UA in [facility] positive for nitrites in the setting of weakness, denies dysuria Elevated lactate of 3.3. Now resolved. Urine culture without growth. Patient completed 3 days of Ceftriaxone. Antibiotics broadened secondary to concerns for pneumonia. Qualifiers: Urinary tract infection type: acute cystitis Hematuria presence: without hematuria Qualified Code(s): N30.00 - Acute cystitis without hematuria (6) Hypertension Status: Acute Blood Pressure stable. Hold ARB due to MARCELLE. Cardiology reviewed ECGs, telemetry, and TTE ECG and did find evidence of atrial fibrillation. Continue beta jayant. Qualifiers: Hypertension type: essential hypertension Qualified Code(s): I10 - Essential (primary) hypertension (7) Diabetes Status: Chronic Nothing by mouth per hematology oncology orders. Continue Accu-Cheks and SSI every 6 hours. Qualifiers: Diabetes mellitus type: type 2 Diabetes mellitus alf insulin use: unspecified alf insulin use status Diabetes mellitus complication status: without complication Qualified Code(s): E11.9 - Type 2 diabetes mellitus without complications (8) Hypothyroid Status: Chronic TSH WNL Continue Synthroid Qualifiers: Hypothyroidism type: acquired Qualified Code(s): E03.9 - Hypothyroidism, unspecified (9) DVT prophylaxis Status: Acute EPCDs, avoid Heparin drip due to severe thromboctyopenia and increased risks of bleeding that outweigh risk of CVA Subjective Principal diagnosis: Shortness of breath Interval history: Patient seen and examined resting in bed wearing nasal cannula. Her SPO2 is 89% on 3 L supplemental oxygen. Patient reports gas pain today. Patient is on Precedex drip for anxiety. Patient has worsening renal function secondary to diuretics and IV antibiotics. She remains thrombocytopenic and has no active signs of bleeding. Repeat hemoglobin is 7.1 this morning. Heme/oncology is following and recommended bone marrow biopsy. Patient is on BiPap and unable to lay prone for the procedure, which is required by [facility]. Given the severity of the patient's flash pulmonary edema, inability to adequately diuresis her due to worsening renal function, and significant thrombocytopenia, her family would like the patient transferred to a tertiary care center for hemato-pathologlogy workup to obtain a definitive diagnosis. Objective PUL Vital signs: Last Vital Signs Temp 97.6 F 02/12/18 07:43 Pulse 68 02/12/18 06:00 Resp 18 02/12/18 06:00 BP 124/56 02/12/18 06:00 Pulse Ox 97 02/12/18 06:00 General appearance: appears uncomfortable (Secondary to gas pain) Eyes: nonicteric ENT: oropharynx dry Neck: supple, no JVD Effort: normal Auscultation: bilateral: rales (right > left) Percussion: bilateral: not dull Cardiovascular: regular rate and rhythm Gastrointestinal: normoactive bowel sounds, soft, tender (Mild), non-distended Integumentary: normal (Ecchymosis, warm and dry) Extremities: no cyanosis, no clubbing, edema (1+ pedal edema) Musculoskeletal: no deformities, ROM normal non-focal exam, pupils equal and round affect normal, anxious Results - Laboratory Findings CBC and BMP: 02/12/18 03:40 02/12/18 03:40 ABG ABG pH 7.43 pH Units (7.32-7.45) 02/11/18 06:42 ABG pCO2 41 mmHg (35-45) 02/11/18 06:42 ABG pO2 73 mmHg (85-104) L 02/11/18 06:42 ABG O2 Saturation 95 % (95-98) 02/11/18 06:42 PT/INR, D-dimer PT 17.1 Seconds (9.4-12.1) H 02/11/18 03:00 Abnormal lab findings: Abnormal lab results RBC 2.07 M/mcL (3.82-4.97) L 02/12/18 03:40 Hgb 7.1 g/dL (11.5-15.4) L 02/12/18 03:40 Hct 21.8 % (35.3-44.9) L 02/12/18 03:40 MCV 105.3 fL (83.0-100.0) H 02/12/18 03:40 MCH 34.3 pg (28.0-33.3) H 02/12/18 03:40 RDW 17.2 % (11.5-14.5) H 02/12/18 03:40 Plt Count 25 K/mcL (140-400) L* 02/12/18 03:40 Neutrophils # 0.8 K/mcL (1.6-8.9) L 02/12/18 03:40 Lymphocytes # 7.8 K/mcL (0.6-4.6) H 02/12/18 03:40 Eosinophils # 1.2 K/mcL (0.0-0.6) H 02/12/18 03:40 Nucleated RBCs/100 WBC 0.4 /100 WBC (0) H 02/12/18 03:40 Reactive Lymphocytes Present (Not Present) A 02/09/18 03:32 Platelet Estimate Marked Decrease (Normal) L 02/12/18 03:40 Polychromasia 1+ (Not Present) A 02/12/18 03:40 Poikilocytosis 1+ (Not Present) A 02/12/18 03:40 Anisocytosis 1+ (Not Present) A 02/12/18 03:40 Microcytosis Present (Not Present) A 02/12/18 03:40 Macrocytosis Present (Not Present) A 02/12/18 03:40 PT 17.1 Seconds (9.4-12.1) H 02/11/18 03:00 ABG pO2 73 mmHg (85-104) L 02/11/18 06:42 ABG Total CO2 28 mEq/L (20-26) H 02/11/18 06:42 Sodium 135 mEq/L (136-145) L 02/12/18 03:40 BUN 34 mg/dL (8-23) H 02/12/18 03:40 Creatinine 2.19 mg/dL (0.60-1.20) H 02/12/18 03:40 Est GFR ( Amer) 26 (> 60) L 02/12/18 03:40 Est GFR (Non-Af Amer) 21 (> 60) L 02/12/18 03:40 Glucose 149 mg/dL (70-105) H 02/12/18 03:40 POC Glucose 179 mg/dL (70-99) H 02/12/18 00:07 AST 8 Units/L (13-39) L 02/11/18 03:00 ALT 4 Units/L (7-52) L 02/11/18 03:00 B-Natriuretic Peptide 611 pg/mL (Less than 100) H 02/11/18 03:00 Serum Total Protein 5.1 g/dL (6.4-8.9) L 02/11/18 03:00 Albumin 2.5 g/dL (3.5-5.7) L 02/11/18 03:00 Albumin/Globulin Ratio 1.0 (1.1-2.2) L 02/11/18 03:00 Urine Clarity Hazy (Clear) A 02/08/18 08:35 Ur Leukocyte Esterase Small (Negative) H 02/08/18 08:35 Urine Microscopic RBC 5-15 per hpf (0-3) H 02/08/18 08:35 Urine Microscopic WBC 3-5 per hpf (0-3) H 02/08/18 08:35 Ur Squamous Epith Cells Many per lpf (None-Few) H 02/08/18 08:35 - Microbiology Findings Microbiology Findings: Microbiology, Last 48 Hours 02/10/18 17:06 Blood Culture - Preliminary Peripheral Venipuncture Culture is incubating and being continuously monitored for growth. Final report to follow. 02/10/18 16:34 Blood Culture - Preliminary Peripheral Venipuncture Culture is incubating and being continuously monitored for growth. Final report to follow. - Diagnostic Findings Chest x-ray: report reviewed, image reviewed Additional studies: Impressions Echocardiogram 02/10/18 11:44 Impressions: LVEF 45-50%. Mild global left ventricular systolic dysfunction. Indeterminate diastolic function. Normal right ventricular structure and function. Mildly dilated left atrium. Mild mitral regurgitation. Moderate tricuspid regurgitation. Severe pulmonary hypertension. LVEF may be underestimated due to Afib RVR, recommend limited echo with definity after rate control. Left Ventricular Wall Motion: Rest Echo Findings The apex, apical inferior, mid inferior, basal inferior, apical anterior, mid anterior, basal anterior, apical septal, mid inferior septal, basal inferior septal, apical lateral, mid anterior lateral, basal anterior lateral, mid anterior septal, mid inferior lateral, basal anterior septal and basal inferior lateral ignacio were hypokinetic. Findings: Study Quality * Technically adequate exam. ECG Findings * Atrial fibrillation, BBB. Left Ventricle * Normal LV chamber size, wall thickness. * Indeterminate diastolic function. * Atypical septal motion consistent with bundle branch block. * LVEF 45-50%. * Mild global left ventricular systolic dysfunction. Right Ventricle * Normal right ventricular structure and function. Left Atrium * Mildly dilated left atrium. Right Atrium * Normal right atrial size. Interatrial Septum * Interatrial septum not well evaluated. Aortic Valve * Trileaflet aortic valve. * Moderately calcified aortic valve leaflets. * No aortic stenosis. * No aortic regurgitation. Mitral Valve * Moderately calcified mitral valve leaflets. * Mild mitral regurgitation. * No mitral stenosis. Tricuspid Valve * Normal tricuspid valve structure. * No tricuspid stenosis. * Moderate tricuspid regurgitation. * Estimated RVSP is 65 mmHg. * Estimated RA pressure is 8 mmHg. * Severe pulmonary hypertension. Pulmonic Valve * Pulmonic valve is not well visualized. * No pulmonic stenosis. * Trace pulmonic regurgitation. Aorta * Normally sized aortic root. Pericardium * The pericardium appears normal. IVC * Normal IVC dimensions and inspiratory collapse. ADDENDUM: 02/11/18 1239 Impressions: LVEF 45-50%. Mild global left ventricular systolic dysfunction. Indeterminate diastolic function. Normal right ventricular structure and function. Mildly dilated left atrium. Mild mitral regurgitation. Moderate tricuspid regurgitation. Severe pulmonary hypertension. LVEF may be underestimated due to tachycardia, recommend repeat limited echo with definity after rate control. Left Ventricular Wall Motion: Rest Echo Findings The apex, apical inferior, mid inferior, basal inferior, apical anterior, mid anterior, basal anterior, apical septal, mid inferior septal, basal inferior septal, apical lateral, mid anterior lateral, basal anterior lateral, mid anterior septal, mid inferior lateral, basal anterior septal and basal inferior lateral ignacio were hypokinetic. Findings: Study Quality * Technically adequate exam. ECG Findings * Sinus rhythm with PACs, tachycardia, BBB. Left Ventricle * Normal LV chamber size, wall thickness. * Indeterminate diastolic function. * Atypical septal motion consistent with bundle branch block. * LVEF 45-50%. * Mild global left ventricular systolic dysfunction. Right Ventricle * Normal right ventricular structure and function. Left Atrium * Mildly dilated left atrium. Right Atrium * Normal right atrial size. Interatrial Septum * Interatrial septum not well evaluated. Aortic Valve * Trileaflet aortic valve. * Moderately calcified aortic valve leaflets. * No aortic stenosis. * No aortic regurgitation. Mitral Valve * Moderately calcified mitral valve leaflets. * Mild mitral regurgitation. * No mitral stenosis. Tricuspid Valve * Normal tricuspid valve structure. * No tricuspid stenosis. * Moderate tricuspid regurgitation. * Estimated RVSP is 65 mmHg. * Estimated RA pressure is 8 mmHg. * Severe pulmonary hypertension. Pulmonic Valve * Pulmonic valve is not well visualized. * No pulmonic stenosis. * Trace pulmonic regurgitation. Aorta * Normally sized aortic root. Pericardium * The pericardium appears normal. IVC * Normal IVC dimensions and inspiratory collapse. Echocardiogram Limited Views 02/11/18 13:23 Impressions: LVEF 55-60%. Normal right ventricular structure and function. Mild tricuspid regurgitation. Moderate pulmonary hypertension. Left Ventricular Wall Motion: Rest Echo Findings All wall segments showed normal motion. Findings: Study Quality * Technically adequate exam. ECG Findings * Sinus rhythm with PVCs, BBB. Left Ventricle * LVEF 55-60%. * Normal LV chamber size, wall thickness and function. * Atypical septal motion consistent with bundle branch block. Right Ventricle * Normal right ventricular structure and function. Pleural Effusion * Large pleural effusion. Pericardium * There is no echocardiographic evidence of tamponade. * There is a trivial pericardial effusion present. Tricuspid Valve * Mild tricuspid regurgitation. * Estimated RA pressure is 15 mmHg. * Estimated RVSP is 51 mmHg. * Moderate pulmonary hypertension. Left Atrium * Mildly dilated left atrium. Right Atrium * Normal right atrial size. Impressions Chest X-Ray 02/12/18 11:33 IMPRESSION: Worsening bilateral pleural effusions. Bibasilar atelectasis. Right lower lobe opacity may represent consolidation from pneumonia. D/ / Lex Anne MD / Lex Anne MD Interpreting Provider: Lex Anne MD - Clinical Findings Intake & Output: Intake & Output 02/11/18 02/12/18 02/12/18 23:59 07:59 15:59 Intake Total 100 / 100 200 / 200 Output Total 100 / 100 175 / 175 Balance 0 / 0 25 / 25 Weight 86.5 kg Consult Discharge Plan - Plan Referrals: NONE,PCP [Primary Care Provider] - <Lindsay Lopez - Last Filed: 02/12/18 22:14> Date of Encounter: 02/12/18 Objective PUL Vital signs: Last Vital Signs Temp 98.2 F 02/12/18 15:59 Pulse 58 02/12/18 16:00 Resp 18 02/12/18 16:00 BP 97/45 02/12/18 16:00 Pulse Ox 100 02/12/18 16:00 Ventilator Settings Ventilator Settings: Ventilator Settings, Last 8 Hours Ventilator Tidal Volume 480 Setting Ventilator Tidal Volume 480 Setting Ventilator Tidal Volume 480 Setting Ventilator Tidal Volume 480 Setting Ventilator Respiratory Rate 8 Setting Ventilator Respiratory Rate 8 Setting Ventilator Respiratory Rate 8 Setting Ventilator Respiratory Rate 8 Setting Results - Laboratory Findings CBC and BMP: 02/12/18 03:40 02/12/18 03:40 ABG ABG pH 7.39 pH Units (7.32-7.45) 02/12/18 13:23 ABG pCO2 37 mmHg (35-45) 02/12/18 13:23 ABG pO2 74 mmHg (85-104) L 02/12/18 13:23 ABG O2 Saturation 95 % (95-98) 02/12/18 13:23 PT/INR, D-dimer PT 17.1 Seconds (9.4-12.1) H 02/11/18 03:00 Abnormal lab findings: Abnormal lab results RBC 2.07 M/mcL (3.82-4.97) L 02/12/18 03:40 Hgb 7.1 g/dL (11.5-15.4) L 02/12/18 03:40 Hct 21.8 % (35.3-44.9) L 02/12/18 03:40 MCV 105.3 fL (83.0-100.0) H 02/12/18 03:40 MCH 34.3 pg (28.0-33.3) H 02/12/18 03:40 RDW 17.2 % (11.5-14.5) H 02/12/18 03:40 Plt Count 25 K/mcL (140-400) L* 02/12/18 03:40 Neutrophils # 0.8 K/mcL (1.6-8.9) L 02/12/18 03:40 Lymphocytes # 7.8 K/mcL (0.6-4.6) H 02/12/18 03:40 Eosinophils # 1.2 K/mcL (0.0-0.6) H 02/12/18 03:40 Nucleated RBCs/100 WBC 0.4 /100 WBC (0) H 02/12/18 03:40 Reactive Lymphocytes Present (Not Present) A 02/09/18 03:32 Platelet Estimate Marked Decrease (Normal) L 02/12/18 03:40 Polychromasia 1+ (Not Present) A 02/12/18 03:40 Poikilocytosis 1+ (Not Present) A 02/12/18 03:40 Anisocytosis 1+ (Not Present) A 02/12/18 03:40 Microcytosis Present (Not Present) A 02/12/18 03:40 Macrocytosis Present (Not Present) A 02/12/18 03:40 PT 17.1 Seconds (9.4-12.1) H 02/11/18 03:00 ABG pO2 74 mmHg (85-104) L 02/12/18 13:23 Sodium 135 mEq/L (136-145) L 02/12/18 03:40 BUN 34 mg/dL (8-23) H 02/12/18 03:40 Creatinine 2.19 mg/dL (0.60-1.20) H 02/12/18 03:40 Est GFR ( Amer) 26 (> 60) L 02/12/18 03:40 Est GFR (Non-Af Amer) 21 (> 60) L 02/12/18 03:40 Glucose 149 mg/dL (70-105) H 02/12/18 03:40 POC Glucose 186 mg/dL (70-99) H 02/12/18 17:58 AST 8 Units/L (13-39) L 02/11/18 03:00 ALT 4 Units/L (7-52) L 02/11/18 03:00 B-Natriuretic Peptide 611 pg/mL (Less than 100) H 02/11/18 03:00 Serum Total Protein 5.1 g/dL (6.4-8.9) L 02/11/18 03:00 Albumin 2.5 g/dL (3.5-5.7) L 02/11/18 03:00 Albumin/Globulin Ratio 1.0 (1.1-2.2) L 02/11/18 03:00 Urine Clarity Hazy (Clear) A 02/08/18 08:35 Ur Leukocyte Esterase Small (Negative) H 02/08/18 08:35 Urine Microscopic RBC 5-15 per hpf (0-3) H 02/08/18 08:35 Urine Microscopic WBC 3-5 per hpf (0-3) H 02/08/18 08:35 Ur Squamous Epith Cells Many per lpf (None-Few) H 02/08/18 08:35 - Microbiology Findings Microbiology Findings: Microbiology, Last 48 Hours 02/10/18 17:06 Blood Culture - Preliminary Peripheral Venipuncture Culture is incubating and being continuously m onitored for growth. Final report to follow. 02/10/18 16:34 Blood Culture - Preliminary Peripheral Venipuncture Culture is incubating and being continuously monitored for growth. Final report to follow. - Clinical Findings Intake & Output: Intake & Output 02/12/18 02/12/18 02/12/18 07:59 15:59 23:59 Intake Total 200 / 200 100 / 100 Output Total 175 / 175 100 / 100 Balance 25 / 25 0 / 0 Weight 86.5 kg - Attending Attestation - Attending Attestation I saw and evaluated this patient and my medical decision-making was reviewed with the Resident Physician. I agree with the documented findings, disposition and treatment plan as described except to the extent set forth below. We independently had [id number] contact with the patient I spent 35 minutes of Critical Care time with this patient. It involved decision making of high complexity to assess, manipulate, and support vital organ system failure and/or to prevent further life threatening deterioration of the patient's condition. The time involved in the performance of separately reportable procedures was not counted toward critical care time. Patient seen and examined at bedside Labs, radiology, chart personally reviewed. Management was reviewed during multidisciplinary critical care rounds. HAND SEWER: Patient conscious following commands with episodic confusionk most likely due to toxic/metabolic encephalopathy secondary to hypoxic respiratory failure Pulm: Developed worsening hypoxic respiratory failure most likely due to fluid overload hydrostatic pulmonary edema and possible pneumonia patient is responding well to BiPAP if she fails BiPAP she will need endotracheal intubation and mechanical ventilation I spoke extensively with patient and her daughter patient willing to try invasive measures if needed. To broaden the antibiotic coverage for possible pneumonia. 1/ patient is responding well to BiPAP will continue aggressive diuresis as left ventricle end-diastolic pressure was high in the echocardiogram according to cardiology. To continue broad-spectrum antibiotics for pneumonia to continue the current BiPAP settings. 1/2 Patient is resistant to diuresis inspite of increased LVEDP in ECHO patient might benefit from Right heart cathetrization will continue broad spectrum antibiotics Cards: Patient is hemodynamically stable with hydrostatic pulmonary edema with poor response to Lasix patient will benefit from BiPAP therapy which reduces afterload and the. The preload. We will start on IV nitroglycerin drip which will improve the diastolic dysfunction. He should has this new onset A. fib cardiology recommended anticoagulation since patient has severe thrombocytopenia and since she is critically ill she will be needing invasive procedure like central line insertion and endotracheal intubation will hold off anticoagulant therapy as the benefit off anticoagulating is less in compared the bleeding risk. Once she is stable for the next 48 hours and will consider about Anticoagulation I explained the risk and benefit to the family. 02/11 discuss with cardiology appreciate input since patient is in sinus rhythm she no longer needs any anticoagulation. Patient is hemodynamically stable to continue nitroglycerin drip in the light of pulmonary edema. 02/12 Patient has acute on chronic diastolic heart failure not responding well to diuresis will benefit from RHC discussed with family , they wanted her to be transferred to advanced heart failure center . FEN-GI: Nothing by mouth as patient is on BiPAP. Renal: As output reviewed concerning for acute kidney injury possible tubular necrosis versus cardiorenal syndrome patient is not responding well to diuresis ID: Chest x-ray shows bibasilar atelectasis possible pneumonia to continue broad spectrum antibiotics. Heme/Onc: presented with thrombocytopenia appreciate tire duster input most likely myelodysplastic syndrome might need bone marrow biopsy once stable. Patient might have long-term poor prognosis as patient thrombocytopenia is not responding to platelet transfusion. Heme onc felt that patient might benefit from hematopathologist evaluation gave option to the family for tertiary care referral Endo: Glucose Monitored Integ/MSK: Skin Care per routine ICU Nursing Protocol to prevent ulcers. Lines: All lines examined without evidence of infection : Dispo: Family requested tertiary care referral further managment CODE: Full Code Had a lengthy discussion with family.
[2018-02-12] MEDS: Nitroglycerin 25 MG/250 ML INFUS..BTL IVC SCH (09:07)
[2018-02-12] MEDS: Bumetanide 1 MG/4 ML VIAL IVP SCH ×2 (09:12→16:11)
[2018-02-12] MEDS: Cyanocobalamin (B-12) 1,000 MCG TABLET PO SCH (09:12)
[2018-02-12] MEDS: Metoprolol XL (24 HR) Succ 50 MG TAB.ER.24H PO SCH (09:12)
[2018-02-12] MEDS: Valsartan 160 MG TABLET PO SCH (09:12)
[2018-02-12] MEDS: amLODIPine 5 MG TABLET PO SCH (09:13)
[2018-02-12] MEDS: Acetaminophen 325 MG TABLET PO PRN (09:17)
[2018-02-12 09:58] LABS: ANA IgG by ELISA NONE DETECTED (None Detected)
--- NOTE | 2018-02-12 10:33 | Cardiology Progress Note ---
Date of Encounter: 02/12/18 Time of Encounter: 09:00 Assessment and Plan (1) Pulmonary edema Current Visit: Yes Status: Acute Per cardiology: -Episode of flash pulmonary edema. Reports improvement today. -On bipap. -Started on IV bumex per critical care team. On nitro drip. -Diastolic CHF. -TTE with LVEF 45-50%, however pateint tachcyardic during TTE. -Repeat limited TTE with LVEF 55-60%, no segmental wall motion abnormalities noted. -MARCELLE now noted, recommend nephrology consult. Consider repeat chest x-ray. Consider discontinuation of ARB. -Strict i/os, fluid restriction, daily weight. -Ok to continue nitro drip, if BP tolerates, until respiratory status improves. Qualifiers: Chronicity: acute Qualified Code(s): J81.0 - Acute pulmonary edema (2) Tachycardia Current Visit: Yes Status: Acute Per cardiology: -ECGs, telemetry, and TTE ECG reviewed with at length, no convincing evidence of a.fib. Difficult to determine due to frequent PACs. -Currently SR, HR controlled. On BB. -Continue telemetry. -Of note, would not be a candidate for anticoagulation due to pancytopenia. Again, no convincing evidence of a.fib. (3) Thrombocytopenia Current Visit: Yes Status: Acute Per cardiology: -Pancytopenia. -hematology following. -Management per primary and hematology services. Discussion w patient/family: The assessment and plan as outlined above was discussed with the patient who expressed understanding and agreement. All questions were answered. Thank you for involving us in the care of your patient. Please call with any questions. Discussed and reviewed with Subjective Principal diagnosis: Shortness of breath Interval history: On Bipap. Remains in ICU. ALert and oriented, asking about family. Objective Vital Signs, Last 4 Hours Temp Pulse Resp BP Pulse Ox 02/12/18 10:00 69 21 125/59 100 02/12/18 09:00 69 21 120/59 100 02/12/18 08:30 67 02/12/18 08:00 97.6 F 67 21 116/57 97 02/12/18 07:43 97.6 F 02/12/18 07:00 68 21 128/60 97 General: Conversant, Other (Conversational dyspnea noted. ) HEENT: Atraumatic, Normocephaly, Mucus Membranes Moist Neck: No JVD, Normal carotid pulses Cardiac: Reg Rate and Rhythm, Normal S1 and S2, No Murmur Lungs: Other (Lung sounds coarse throughout. ) Neuro: Alert and responsive, No focal deficits noted Abdomen: Soft, Non-Tender Skin: No rashes noted on visualized skin Musculoskeletal: No Chest Wall Tenderness Extremities: No Clubbing, No Cyanosis, Normal Pulses, Other (Mild bilateral pedal edema noted, non-pitting. ) Results 02/12/18 03:40 02/12/18 03:40 Lab Results Impressions Echocardiogram 02/10/18 11:44 Impressions: LVEF 45-50%. Mild global left ventricular systolic dysfunction. Indeterminate diastolic function. Normal right ventricular structure and function. Mildly dilated left atrium. Mild mitral regurgitation. Moderate tricuspid regurgitation. Severe pulmonary hypertension. LVEF may be underestimated due to Afib RVR, recommend limited echo with definity after rate control. Left Ventricular Wall Motion: Rest Echo Findings The apex, apical inferior, mid inferior, basal inferior, apical anterior, mid anterior, basal anterior, apical septal, mid inferior septal, basal inferior septal, apical lateral, mid anterior lateral, basal anterior lateral, mid anterior septal, mid inferior lateral, basal anterior septal and basal inferior lateral ignacio were hypokinetic. Findings: Study Quality * Technically adequate exam. ECG Findings * Atrial fibrillation, BBB. Left Ventricle * Normal LV chamber size, wall thickness. * Indeterminate diastolic function. * Atypical septal motion consistent with bundle branch block. * LVEF 45-50%. * Mild global left ventricular systolic dysfunction. Right Ventricle * Normal right ventricular structure and function. Left Atrium * Mildly dilated left atrium. Right Atrium * Normal right atrial size. Interatrial Septum * Interatrial septum not well evaluated. Aortic Valve * Trileaflet aortic valve. * Moderately calcified aortic valve leaflets. * No aortic stenosis. * No aortic regurgitation. Mitral Valve * Moderately calcified mitral valve leaflets. * Mild mitral regurgitation. * No mitral stenosis. Tricuspid Valve * Normal tricuspid valve structure. * No tricuspid stenosis. * Moderate tricuspid regurgitation. * Estimated RVSP is 65 mmHg. * Estimated RA pressure is 8 mmHg. * Severe pulmonary hypertension. Pulmonic Valve * Pulmonic valve is not well visualized. * No pulmonic stenosis. * Trace pulmonic regurgitation. Aorta * Normally sized aortic root. Pericardium * The pericardium appears normal. IVC * Normal IVC dimensions and inspiratory collapse. ADDENDUM: 02/11/18 1239 Impressions: LVEF 45-50%. Mild global left ventricular systolic dysfunction. Indeterminate diastolic function. Normal right ventricular structure and function. Mildly dilated left atrium. Mild mitral regurgitation. Moderate tricuspid regurgitation. Severe pulmonary hypertension. LVEF may be underestimated due to tachycardia, recommend repeat limited echo with definity after rate control. Left Ventricular Wall Motion: Rest Echo Findings The apex, apical inferior, mid inferior, basal inferior, apical anterior, mid anterior, basal anterior, apical septal, mid inferior septal, basal inferior septal, apical lateral, mid anterior lateral, basal anterior lateral, mid anterior septal, mid inferior lateral, basal anterior septal and basal inferior lateral ignacio were hypokinetic. Findings: Study Quality * Technically adequate exam. ECG Findings * Sinus rhythm with PACs, tachycardia, BBB. Left Ventricle * Normal LV chamber size, wall thickness. * Indeterminate diastolic function. * Atypical septal motion consistent with bundle branch block. * LVEF 45-50%. * Mild global left ventricular systolic dysfunction. Right Ventricle * Normal right ventricular structure and function. Left Atrium * Mildly dilated left atrium. Right Atrium * Normal right atrial size. Interatrial Septum * Interatrial septum not well evaluated. Aortic Valve * Trileaflet aortic valve. * Moderately calcified aortic valve leaflets. * No aortic stenosis. * No aortic regurgitation. Mitral Valve * Moderately calcified mitral valve leaflets. * Mild mitral regurgitation. * No mitral stenosis. Tricuspid Valve * Normal tricuspid valve structure. * No tricuspid stenosis. * Moderate tricuspid regurgitation. * Estimated RVSP is 65 mmHg. * Estimated RA pressure is 8 mmHg. * Severe pulmonary hypertension. Pulmonic Valve * Pulmonic valve is not well visualized. * No pulmonic stenosis. * Trace pulmonic regurgitation. Aorta * Normally sized aortic root. Pericardium * The pericardium appears normal. IVC * Normal IVC dimensions and inspiratory collapse. Echocardiogram Limited Views 02/11/18 13:23 Impressions: LVEF 55-60%. Normal right ventricular structure and function. Mild tricuspid regurgitation. Moderate pulmonary hypertension. Left Ventricular Wall Motion: Rest Echo Findings All wall segments showed normal motion. Findings: Study Quality * Technically adequate exam. ECG Findings * Sinus rhythm with PVCs, BBB. Left Ventricle * LVEF 55-60%. * Normal LV chamber size, wall thickness and function. * Atypical septal motion consistent with bundle branch block. Right Ventricle * Normal right ventricular structure and function. Pleural Effusion * Large pleural effusion. Pericardium * There is no echocardiographic evidence of tamponade. * There is a trivial pericardial effusion present. Tricuspid Valve * Mild tricuspid regurgitation. * Estimated RA pressure is 15 mmHg. * Estimated RVSP is 51 mmHg. * Moderate pulmonary hypertension. Left Atrium * Mildly dilated left atrium. Right Atrium * Normal right atrial size. Active Medications Acetaminophen (Tylenol) 650 mg PO Q6HR PRN PRN Reason: Mild Pain/Fever Stop: 08/09/18 21:27 Last Admin: 02/12/18 09:17 Dose: 650 mg Amlodipine Besylate (Norvasc) 10 mg PO DAILY [facility] Stop: 08/10/18 09:01 Last Admin: 02/12/18 09:13 Dose: 10 mg Bumetanide (Bumex) 1 mg IVP BIDDIURETIC [facility] Stop: 08/13/18 17:01 Last Admin: 02/12/18 09:12 Dose: 1 mg Cyanocobalamin (Vitamin B12) 1,000 mcg PO DAILY [facility] Stop: 08/12/18 13:01 Last Admin: 02/12/18 09:12 Dose: 1,000 mcg Dextrose/Water (Dextrose 50% (Syg)) 25 ml IVP AD PRN PRN Reason: Hypoglycemia Stop: 08/09/18 21:44 Dicyclomine HCl (Bentyl) 20 mg PO Q6H PRN PRN Reason: Gas pain Stop: 08/14/18 08:43 Last Admin: 02/12/18 09:17 Dose: 20 mg Glucagon (Glucagen) 1 mg IM ONCE PRN PRN Reason: Hypoglycemia Stop: 08/09/18 21:44 Glucose (Gluctose) 15 gm PO ONCE PRN PRN Reason: Hypoglycemia Stop: 08/09/18 21:44 Glucose (Gluctose) 30 gm PO ONCE PRN PRN Reason: Hypoglycemia Stop: 08/09/18 21:44 Dextrose (Dextrose 5%) 1,000 mls @ 100 mls/hr IVC .Q10H PRN PRN Reason: HYPOGLYCEMIA Stop: 08/09/18 21:44 Dexmedetomidine HCl (Precedex Premix) 400 mcg in 100 mls @ 4.365 mls/hr IVC .[id number] [facility]; Protocol Stop: 08/12/18 17:31 Last Admin: 01/02/19 09:47 Dose: 0.2 mcg/kg/hr, 4.365 mls/hr Nitroglycerin (Nitroglycerin Premix 25 Mg/250 Ml) 25 mg in 250 mls @ 3 mls/hr IVC .Q24H [facility]; Protocol Stop: 08/12/18 18:16 Last Admin: 02/12/18 09:07 Dose: Not Given Piperacillin Sod/Tazobactam (Sod 3.375 gm/ Sodium Chloride) 100 mls @ 25 mls/hr IVPB Q12H [facility] Stop: 08/13/18 12:01 Last Infusion: 02/12/18 03:22 Dose: Infused Insulin Human Lispro (Humalog) 0 units SQ Q6HR [facility]; Protocol Stop: 08/13/18 00:01 Last Admin: 02/12/18 06:20 Dose: 2 units Levothyroxine Sodium (Synthroid) 75 mcg PO 0630 [facility] Stop: 08/10/18 06:31 Last Admin: 02/12/18 06:22 Dose: 75 mcg Metoprolol Succinate (Toprol Xl) 100 mg PO DAILY [facility] Stop: 08/10/18 09:01 Last Admin: 02/12/18 09:12 Dose: 100 mg Naloxone HCl (Narcan) 0.4 mg IVP Q2MIN PRN PRN Reason: SEE COMMENTS Stop: 08/09/18 21:27 Ondansetron HCl (Zofran) 4 mg IVP Q6HR PRN; Protocol PRN Reason: Nausea/Vomiting Stop: 08/10/18 17:39 Last Admin: 02/10/18 16:24 Dose: 4 mg Simethicone (Gas-X) 80 mg PO TID PRN PRN Reason: Dyspepsia Stop: 08/09/18 23:28 Last Admin: 02/09/18 14:01 Dose: 80 mg Tramadol HCl (Ultram) 50 mg PO Q6HR PRN PRN Reason: Moderate Pain Stop: 08/09/18 21:27 Last Admin: 02/12/18 06:20 Dose: 50 mg Trazodone HCl (Trazodone) 100 mg PO HS [facility] Stop: 08/11/18 21:01 Last Admin: 02/11/18 20:28 Dose: 100 mg Valsartan (Diovan) 320 mg PO DAILY [facility] Stop: 08/10/18 09:01 Last Admin: 02/12/18 09:12 Dose: 320 mg Laboratory Tests 02/11/18 02/12/18 02/12/18 03:00 03:40 03:40 Hgb 7.1 L Plt Count 25 L* Creatinine 1.50 H 2.19 H - Imaging and Cardiology Chest Xray: report reviewed Echo: report reviewed - EKG Interpretation EKG results cardiology: other (Telemetry reviewed with average HR previous 12 hours noted to be) Consult Discharge Plan - Plan Referrals: NONE,PCP [Primary Care Provider] -
[2018-02-12] MEDS ORDERED: Pantoprazole 40 MG VIAL IVP SCH (11:15)
[2018-02-12] MEDS: Piperacillin/Tazobactam 3.375 GM in 0.9 % Sodium Chloride Mini Bag 100 ML IVPB SCH (13:07)
[2018-02-12 13:27] LABS: ABG Base Excess -2 mEq/L (-2 to 3); ABG HCO3 23 mEq/L (21-27); ABG Oxygen Saturation 95 % (95-98); ABG PCO2 37 mmHg (35-45); ABG PH 7.39 pH Units (7.32-7.45); ABG PO2 74 mmHg (85-104); ABG TCO2 24 mEq/L (20-26); Blood Gas Modality BiLevel; Blood Gas PEEP 6 cm H2O; Blood Gas VT 480 cc
--- NOTE | 2018-02-12 16:31 | Oncology Inp Progress Note ---
<Herminia Toledo L - Last Filed: 02/12/18 16:31> Date of Encounter: 02/12/18 Oncology: Obj Data - Labs CBC & Chem 7: 02/12/18 03:40 02/12/18 03:40 Consult Discharge Plan - Plan Referrals: NONE,PCP [Primary Care Provider] - <Mitra Negrete S - Last Filed: 02/14/18 09:11> Date of Encounter: 02/12/18 Time of Encounter: 18:00 (1) Thrombocytopenia Status: Acute (2) Hypothyroid Status: Chronic Qualifiers: Hypothyroidism type: acquired Qualified Code(s): E03.9 - Hypothyroidism, unspecified (3) UTI (urinary tract infection) Status: Acute Qualifiers: Urinary tract infection type: acute cystitis Hematuria presence: without hematuria Qualified Code(s): N30.00 - Acute cystitis without hematuria Oncology: Subj Interval history: On the ICU on BiPAP. Shortness of breath. Patient not able to give much history. Deconditioning. No major bleeding - Constitutional Exam: GENERAL: Fatigued. Mental Status: Hard to assess as patient is on BiPAP lethargic HEENT: Sclerae anicteric. No mucositis or thrush. No other oral or pharyngeal lesions or erythema. Skin: No rashes or petechiae. No evidence of skin malignancy Lymph nodes: No cervical, supraclavicular, axillary, or inguinal adenopathy. Lungs: Air entry decreased at bases Cardiovascular: Regular rate and rhythm. No skipped beats Abdomen: Soft, nontender; no organomegaly or masses palpable. Extremities: No edema. No calf swelling or tenderness. No joint deformity. Neurologic: Not assessed. No focal neurological deficits noticed Oncology: Obj Data - Labs CBC & Chem 7: 02/12/18 03:40 02/12/18 03:40 Inpatient Charges Provider: Dr. Ricardo Negrete Follow up - Inpatient: [id number] - Attending Attestation I examined this patient and my medical decision-making was reviewed with the Advanced Practice Nurse. I agree with the documented findings, disposition and treatment plan as described except to the extent set forth below. 1. Pancytopenia with macrocytic anemia. Today on 02/12/2018 platelets 25,000. Hemoglobin 7.1 MCV 105. Neutrophils 800. She also has elevated white count and automated count was reporting them as is her lymphocytes are monocytes. Also e levated eosinophils 1200. This is suggestive of underlying bone marrow process either MDS/leukemia. She needs bone marrow biopsy. Agree with transfer to a [place] where she would have treatment options if she has underlying bone marrow problem. Apparently patient cannot be transferred to [facility] for insurance reasons 2. Acute kidney injury creatinine 2.1 today on 02/12/2018. Her baseline cr eatinine is around 0.9. Some of this is aggravated by diuretics. Currently on Bumex 3. Symptoms of CHF with shortness of breath. Cardiology suspecting diastolic CHF Echocardiogram 02/11/2018 showed ejection fraction 55-60%. Normal right ventricular function with moderate pulmonary hypertension. Mild tricuspid regurgitation
--- NOTE | 2018-02-12 16:35 | Electrocardiograph Report ---
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
--- NOTE | 2018-02-12 16:54 | Electrocardiograph Report ---
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
[2018-02-12 18:10] VITALS: BP 125/55
--- NOTE | 2018-02-12 20:19 | Discharge Summary ---
<Pedro Lal - Last Filed: 02/12/18 20:16> - NOTES TO OUTPATIENT PROVIDER Notes to Outpatient Provider: Admitted from 02/07-02/12 with weakness. Found to by thrombocytopenic. 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 Acute respiratory failure secondary to flash pulmonary edema. Tolerating Bipap but unable to diuresis due to MARCELLE. Orders not resulted at time of discharge: Pending orders 02/11/18 03:00 Protein Electrophoresis AM 0400 Serum Free Light Chain [[place] Lambda Qnt FLC w Ratio] AM 0400 02/13/18 04:00 Basic Metabolic Panel AM 0400 Complete Blood Count [HEME] AM 0400 INR/PT [Prothrombin Time INR] [COAG] AM 0400 02/10/18 17:06 Culture,Blood [BC] Stat Date of Encounter: 02/12/18 Time of Encounter: 20:21 - Discharge Diagnosis (1) UTI (urinary tract infection) Priority: Secondary Status: Acute Qualifiers: Urinary tract infection type: acute cystitis Hematuria presence: without hematuria Qualified Code(s): N30.00 - Acute cystitis without hematuria (2) Thrombocytopenia Priority: Primary Status: Acute (3) Weakness Priority: Secondary Status: Acute (4) Diabetes Priority: Secondary Status: Chronic Qualifiers: Diabetes mellitus type: type 2 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 residential insulin use status Diabetes mellitus complication status: without complication Qualified Code(s): E11.9 - Type 2 diabetes mellitus without complications (5) Hypothyroid Priority: Secondary Status: Chronic Qualifiers: Hypothyroidism type: acquired Qualified Code(s): E03.9 - Hypothyroidism, unspecified (6) Hypertension Priority: Secondary Status: Chronic Qualifiers: Hypertension type: essential hypertension Qualified Code(s): I10 - Essential (primary) hypertension (7) DVT prophylaxis Priority: Secondary Status: Acute (8) Pulmonary edema Priority: Secondary Status: Acute Qualifiers: Chronicity: acute Qualified Code(s): J81.0 - Acute pulmonary edema (9) Acute respiratory failure with hypoxemia Priority: Primary Status: Acute (10) MARCELLE (acute kidney injury) Priority: Secondary Status: Acute (11) Tachycardia Priority: Secondary Status: Acute - Discharge Medications Home Medications: Acetaminophen [Tylenol] 650 mg PO Q6HR PRN 02/07/18 [History] Amlodipine/Valsartan [Exforge 10-320 mg Tablet] 1 tab PO DAILY 02/07/18 [History] Cholecalciferol (Vitamin D3) [Decara] 10,000 unit PO MO 02/07/18 [History] Cranberry Fruit Extract [Cranberry] 400 mg PO TID 02/07/18 [History] Cyanocobalamin (B-12) [Vitamin B12] 1,000 mcg IM QMONTH 02/07/18 [History] Cyanocobalamin (Vitamin B-12) [Vitamin B12] 500 mcg PO DAILY 02/07/18 [History] Fesoterodine Fumarate [Toviaz] 8 mg PO DAILY 02/07/18 [History] Glimepiride [Amaryl] 1 mg PO DAILY 02/07/18 [History] Levothyroxine Sodium [Levoxyl] 75 mcg PO DAILY 02/07/18 [History] Metoprolol Succinate [Toprol Xl] 100 mg PO DAILY 02/07/18 [History] Trazodone HCl 100 mg PO HS 02/07/18 [History] metFORMIN [Glucophage] 500 mg PO DAILY 02/07/18 [History] Allergies/Adverse Reactions: Allergy/AdvReac Type Severity Reaction Status Date / Time No Known Allergies Allergy Verified 02/08/18 01:33 Labs on day of discharge: Labs from last 24 hours 02/12/18 02/12/18 02/12/18 17:58 13:23 13:01 WBC RBC Hgb Hct MCV MCH MCHC RDW Plt Count MPV Seg Neutrophils % Lymphocytes % Monocytes % Eosinophils % Neutrophils # Lymphocytes # Monocytes # Eosinophils # Nucleated RBCs/100 WBC Platelet Estimate Immature Plt Fraction Polychromasia Poikilocytosis Anisocytosis Microcytosis Macrocytosis Haptoglobin ABG pH 7.39 ABG pCO2 37 ABG pO2 74 L ABG HCO3 23 ABG Total CO2 24 ABG O2 Saturation 95 ABG Base Excess -2 O2 Delivery Device BiPAP Blood Gas Modality BiLevel Inspired O2 30.0 Tidal Volume 480 PEEP 6 Sodium Potassium Chloride Carbon Dioxide BUN Creatinine Est GFR ( Amer) Est GFR (Non-Af Amer) BUN/Creatinine Ratio Glucose POC Glucose 186 H 203 H Calculated Osmolality Calcium Methylmalonic Acid SAMUEL Screen Platelet IgG Antibody Platelet IgM Antibody Blood Type Antibody Screen 02/12/18 02/12/18 02/12/18 11:48 03:40 03:40 WBC 10.0 RBC 2.07 L Hgb 7.1 L Hct 21.8 L MCV 105.3 H MCH 34.3 H MCHC 32.6 RDW 17.2 H Plt Count 25 L* MPV 10.8 Seg Neutrophils % 8.0 Lymphocytes % 78.0 Monocytes % 2.0 Eosinophils % 12.0 Neutrophils # 0.8 L Lymphocytes # 7.8 H Monocytes # 0.2 Eosinophils # 1.2 H Nucleated RBCs/100 WBC 0.4 H Platelet Estimate Marked Decrease L Immature Plt Fraction 5.3 Polychromasia 1+ A Poikilocytosis 1+ A Anisocytosis 1+ A Microcytosis Present A Macrocytosis Present A Haptoglobin ABG pH ABG pCO2 ABG pO2 ABG HCO3 ABG Total CO2 ABG O2 Saturation ABG Base Excess O2 Delivery Device Blood Gas Modality Inspired O2 Tidal Volume PEEP Sodium 135 L Potassium 3.9 Chloride 102 Carbon Dioxide 24 BUN 34 H Creatinine 2.19 H Est GFR ( Amer) 26 L Est GFR (Non-Af Amer) 21 L BUN/Creatinine Ratio 16 Glucose 149 H POC Glucose 212 H Calculated Osmolality 290 Calcium 10.0 Methylmalonic Acid SAMUEL Screen Platelet IgG Antibody Platelet IgM Antibody Blood Type Antibody Screen 02/12/18 02/12/18 02/10/18 03:40 00:07 06:00 WBC RBC Hgb Hct MCV MCH MCHC RDW Plt Count MPV Seg Neutrophils % Lymphocytes % Monocytes % Eosinophils % Neutrophils # Lymphocytes # Monocytes # Eosinophils # Nucleated RBCs/100 WBC Platelet Estimate Immature Plt Fraction Polychromasia Poikilocytosis Anisocytosis Microcytosis Macrocytosis Haptoglobin ABG pH ABG pCO2 ABG pO2 ABG HCO3 ABG Total CO2 ABG O2 Saturation ABG Base Excess O2 Delivery Device Blood Gas Modality Inspired O2 Tidal Volume PEEP Sodium Potassium Chloride Carbon Dioxide BUN Creatinine Est GFR ( Amer) Est GFR (Non-Af Amer) BUN/Creatinine Ratio Glucose POC Glucose 179 H Calculated Osmolality Calcium Methylmalonic Acid SAMUEL Screen Platelet IgG Antibody NEGATIVE Platelet IgM Antibody NEGATIVE Blood Type A POSITIVE Antibody Screen NEGATIVE 02/10/18 02/10/18 02/09/18 06:00 06:00 07:45 WBC RBC Hgb Hct MCV MCH MCHC RDW Plt Count MPV Seg Neutrophils % Lymphocytes % Monocytes % Eosinophils % Neutrophils # Lymphocytes # Monocytes # Eosinophils # Nucleated RBCs/100 WBC Platelet Estimate Immature Plt Fraction Polychromasia Poikilocytosis Anisocytosis Microcytosis Macrocytosis Haptoglobin 150 ABG pH ABG pCO2 ABG pO2 ABG HCO3 ABG Total CO2 ABG O2 Saturation ABG Base Excess O2 Delivery Device Blood Gas Modality Inspired O2 Tidal Volume PEEP Sodium Potassium Chloride Carbon Dioxide BUN Creatinine Est GFR ( Amer) Est GFR (Non-Af Amer) BUN/Creatinine Ratio Glucose POC Glucose Calculated Osmolality Calcium Methylmalonic Acid 0.29 SAMUEL Screen NONE DETECTED Platelet IgG Antibody Platelet IgM Antibody Blood Type Antibody Screen Preliminary micro results at discharge 02/10/18 17:06 Blood Culture - Preliminary Peripheral Venipuncture Culture is incubating and being continuously monitored for growth. Final report to follow. 02/10/18 16:34 Blood Culture - Preliminary Peripheral Venipuncture Culture is incubating and being continuously monitored for growth. Final report to follow. - Impressions ITS Impressions Chest X-Ray 02/08/18 20:18 IMPRESSION: Trace effusions and mild bibasilar airspace disease which could represent atelectasis or pneumonia. D/ / Lisandro Dee MD / Lisandro Dee MD Interpreting Provider: Lisandro Dee MD Abdomen/Pelvis CT 02/10/18 09:30 IMPRESSION: Limited by motion artifact and lack of IV contrast. No CT evidence of acute intra-abdominal process. Small bilateral pleural effusions with bibasilar atelectasis or pneumonia. Colonic diverticulosis. Diffuse atherosclerotic disease. Diffuse osteopenia. D/ / Efra Banuelos / Efra Banuelos Interpreting Provider: Efra Banuelos Echocardiogram 02/10/18 11:44 Impressions: LVEF 45-50%. Mild global left ventricular systolic dysfunction. Indeterminate diastolic function. Normal right ventricular structure and function. Mildly dilated left atrium. Mild mitral regurgitation. Moderate tricuspid regurgitation. Severe pulmonary hypertension. LVEF may be underestimated due to Afib RVR, recommend limited echo with definity after rate control. Left Ventricular Wall Motion: Rest Echo Findings The apex, apical inferior, mid inferior, basal inferior, apical anterior, mid anterior, basal anterior, apical septal, mid inferior septal, basal inferior septal, apical lateral, mid anterior lateral, basal anterior lateral, mid anterior septal, mid inferior lateral, basal anterior septal and basal inferior lateral ignacio were hypokinetic. Findings: Study Quality * Technically adequate exam. ECG Findings * Atrial fibrillation, BBB. Left Ventricle * Normal LV chamber size, wall thickness. * Indeterminate diastolic function. * Atypical septal motion consistent with bundle branch block. * LVEF 45-50%. * Mild global left ventricular systolic dysfunction. Right Ventricle * Normal right ventricular structure and function. Left Atrium * Mildly dilated left atrium. Right Atrium * Normal right atrial size. Interatrial Septum * Interatrial septum not well evaluated. Aortic Valve * Trileaflet aortic valve. * Moderately calcified aortic valve leaflets. * No aortic stenosis. * No aortic regurgitation. Mitral Valve * Moderately calcified mitral valve leaflets. * Mild mitral regurgitation. * No mitral stenosis. Tricuspid Valve * Normal tricuspid valve structure. * No tricuspid stenosis. * Moderate tricuspid regurgitation. * Estimated RVSP is 65 mmHg. * Estimated RA pressure is 8 mmHg. * Severe pulmonary hypertension. Pulmonic Valve * Pulmonic valve is not well visualized. * No pulmonic stenosis. * Trace pulmonic regurgitation. Aorta * Normally sized aortic root. Pericardium * The pericardium appears normal. IVC * Normal IVC dimensions and inspiratory collapse. ADDENDUM: 02/11/18 1239 Impressions: LVEF 45-50%. Mild global left ventricular systolic dysfunction. Indeterminate diastolic function. Normal right ventricular structure and function. Mildly dilated left atrium. Mild mitral regurgitation. Moderate tricuspid regurgitation. Severe pulmonary hypertension. LVEF may be underestimated due to tachycardia, recommend repeat limited echo with definity after rate control. Left Ventricular Wall Motion: Rest Echo Findings The apex, apical inferior, mid inferior, basal inferior, apical anterior, mid anterior, basal anterior, apical septal, mid inferior septal, basal inferior septal, apical lateral, mid anterior lateral, basal anterior lateral, mid anterior septal, mid inferior lateral, basal anterior septal and basal inferior lateral ignacio were hypokinetic. Findings: Study Quality * Technically adequate exam. ECG Findings * Sinus rhythm with PACs, tachycardia, BBB. Left Ventricle * Normal LV chamber size, wall thickness. * Indeterminate diastolic function. * Atypical septal motion consistent with bundle branch block. * LVEF 45-50%. * Mild global left ventricular systolic dysfunction. Right Ventricle * Normal right ventricular structure and function. Left Atrium * Mildly dilated left atrium. Right Atrium * Normal right atrial size. Interatrial Septum * Interatrial septum not well evaluated. Aortic Valve * Trileaflet aortic valve. * Moderately calcified aortic valve leaflets. * No aortic stenosis. * No aortic regurgitation. Mitral Valve * Moderately calcified mitral valve leaflets. * Mild mitral regurgitation. * No mitral stenosis. Tricuspid Valve * Normal tricuspid valve structure. * No tricuspid stenosis. * Moderate tricuspid regurgitation. * Estimated RVSP is 65 mmHg. * Estimated RA pressure is 8 mmHg. * Severe pulmonary hypertension. Pulmonic Valve * Pulmonic valve is not well visualized. * No pulmonic stenosis. * Trace pulmonic regurgitation. Aorta * Normally sized aortic root. Pericardium * The pericardium appears normal. IVC * Normal IVC dimensions and inspiratory collapse. Chest X-Ray 02/11/18 04:00 IMPRESSION: Worsening bibasilar atelectasis and/or pneumonia. Bilateral pleural effusions. D/ / Tay Gibbons MD / Tay Gibbons MD Interpreting Provider: Tay Gibbons MD Echocardiogram Limited Views 02/11/18 13:23 Impressions: LVEF 55-60%. Normal right ventricular structure and function. Mild tricuspid regurgitation. Moderate pulmonary hypertension. Left Ventricular Wall Motion: Rest Echo Findings All wall segments showed normal motion. Findings: Study Quality * Technically adequate exam. ECG Findings * Sinus rhythm with PVCs, BBB. Left Ventricle * LVEF 55-60%. * Normal LV chamber size, wall thickness and function. * Atypical septal motion consistent with bundle branch block. Right Ventricle * Normal right ventricular structure and function. Pleural Effusion * Large pleural effusion. Pericardium * There is no echocardiographic evidence of tamponade. * There is a trivial pericardial effusion present. Tricuspid Valve * Mild tricuspid regurgitation. * Estimated RA pressure is 15 mmHg. * Estimated RVSP is 51 mmHg. * Moderate pulmonary hypertension. Left Atrium * Mildly dilated left atrium. Right Atrium * Normal right atrial size. Chest X-Ray 02/12/18 11:33 IMPRESSION: Worsening bilateral pleural effusions. Bibasilar atelectasis. Right lower lobe opacity may represent consolidation from pneumonia. D/ / Lex Anne MD / Lex Anne MD Interpreting Provider: Lex Anne MD Date of admission: 02/10/18 15:38 Primary care physician: PCP NONE Consults: 02/07/18 21:30 Consult to Occupational Therapy [CONS] Routine Comment: Evaluate, develop and implement POC Reason for Consult: Weakness Does patient have active BEDREST order?: No Is patient medically & hemodynamically stable?: Yes Patient assessed for mobility or mobilized this visit?: No Consult to Physical Therapy [CONS] Routine Comment: Evaluate, develop and implement POC Reason for Consult: Weakness Does patient have active BEDREST order?: No Is patient medically & hemodynamically stable?: Yes Patient assessed for mobility or mobilized this visit?: No 02/07/18 21:31 Consult to Oncology [CONS] Routine Consulting Provider: Oncology [facility] Reason for Consult: Thrombocytopenia Call Completed: No 02/10/18 12:03 Consult to Cardiology [CONS] Routine Comment: Consulting Provider: Cardiology [place] Reason for Consult: new afib Call Completed: Yes 02/10/18 17:14 Consult to Critical Care [CONS] Stat Consulting Provider: [facility] [place] Reason for Consult: respirtory failure Call Completed: Yes Discharging clinician: Jonh Schafer Anticipated date of discharge: 02/12/18 - Patient Status Disposition: Transfer Critical Access Hosp Condition: Critical Functional capacity at discharge: independent ambulation Overall status at discharge: patient is not back to baseline - Discharge Instructions Follow Up With: NONE,PCP [Primary Care Provider] - - Hospital Course Hospital course: In brief, Ms. Bautista is a 87 year old female admitted 02/07 with a complaint of weakness. She was found to have thrombocytopenia and subsequently developed flash pulmonary edema secondary to blood products and fluid infusions. Also has developed acute kidney injury secondary to diuresis. Evaluated by inpatient cardiology and echocardiogram showed an ejection fraction of 55-60% with no segmental wall motion abnormalities noted. Patient was started on nitro drip for pulmonary edema. She is currently tolerating BiPAP without complaints. Also evaluated by hematology who suspects a mild dysplastic syndrome and recommends bone marrow biopsy for more definitive answer. Most recent lab results include a platelet count 25, hemoglobin 7.1, BUNs/creatinine of 34/2.19. SAMUEL screen and platelet Antibodies were negative. Patient and family are requesting transfer to [facility] for more hematop athology workup. Accepted to [facility] ICU - Time Spent with Patient Total time spent providing and/or coordinating discharge services: Physical Examination Vital Signs: Vital Signs, Last 4 Hours Pulse Resp BP Pulse Ox 02/12/18 18:09 64 18 125/55 98 02/12/18 17:00 61 18 111/56 98 General appearance: no acute distress Eyes: nonicteric ENT: oropharynx dry Neck: supple, no JVD Effort: normal Auscultation: bilateral: rales Percussion: bilateral: not dull Cardiovascular: regular rate and rhythm Gastrointestinal: normoactive bowel sounds, soft, tender, non-distended Integumentary: normal Extremities: no cyanosis, no clubbing, edema Musculoskeletal: no deformities, ROM normal non-focal exam, pupils equal and round affect normal, anxious <Lindsay Lopez S - Last Filed: 02/12/18 22:22> Orders not resulted at time of discharge: Pending orders 02/11/18 03:00 Protein Electrophoresis AM 0400 Serum Free Light Chain [[place] Lambda Qnt FLC w Ratio] AM 0400 02/10/18 17:06 Culture,Blood [BC] Stat Date of Encounter: 02/12/18 Labs on day of discharge: Labs from last 24 hours 02/12/18 02/12/18 02/12/18 20:26 17:58 13:23 WBC RBC Hgb Hct MCV MCH MCHC RDW Plt Count MPV Seg Neutrophils % Lymphocytes % Monocytes % Eosinophils % Neutrophils # Lymphocytes # Monocytes # Eosinophils # Nucleated RBCs/100 WBC Platelet Estimate Immature Plt Fraction Polychromasia Poikilocytosis Anisocytosis Microcytosis Macrocytosis Haptoglobin ABG pH 7.39 ABG pCO2 37 ABG pO2 74 L ABG HCO3 23 ABG Total CO2 24 ABG O2 Saturation 95 ABG Base Excess -2 O2 Delivery Device BiPAP Blood Gas Modality BiLevel Inspired O2 30.0 Tidal Volume 480 PEEP 6 Sodium Potassium Chloride Carbon Dioxide BUN Creatinine Est GFR ( Amer) Est GFR (Non-Af Amer) BUN/Creatinine Ratio Glucose POC Glucose 174 H 186 H Calculated Osmolality Calcium Methylmalonic Acid SAMUEL Screen Platelet IgG Antibody Platelet IgM Antibody Blood Type Antibody Screen 02/12/18 02/12/18 02/12/18 13:01 11:48 03:40 WBC RBC Hgb Hct MCV MCH MCHC RDW Plt Count MPV Seg Neutrophils % Lymphocytes % Monocytes % Eosinophils % Neutrophils # Lymphocytes # Monocytes # Eosinophils # Nucleated RBCs/100 WBC Platelet Estimate Immature Plt Fraction Polychromasia Poikilocytosis Anisocytosis Microcytosis Macrocytosis Haptoglobin ABG pH ABG pCO2 ABG pO2 ABG HCO3 ABG Total CO2 ABG O2 Saturation ABG Base Excess O2 Delivery Device Blood Gas Modality Inspired O2 Tidal Volume PEEP Sodium 135 L Potassium 3.9 Chloride 102 Carbon Dioxide 24 BUN 34 H Creatinine 2.19 H Est GFR ( Amer) 26 L Est GFR (Non-Af Amer) 21 L BUN/Creatinine Ratio 16 Glucose 149 H POC Glucose 203 H 212 H Calculated Osmolality 290 Calcium 10.0 Methylmalonic Acid SAMUEL Screen Platelet IgG Antibody Platelet IgM Antibody Blood Type Antibody Screen 02/12/18 02/12/18 02/12/18 03:40 03:40 00:07 WBC 10.0 RBC 2.07 L Hgb 7.1 L Hct 21.8 L MCV 105.3 H MCH 34.3 H MCHC 32.6 RDW 17.2 H Plt Count 25 L* MPV 10.8 Seg Neutrophils % 8.0 Lymphocytes % 78.0 Monocytes % 2.0 Eosinophils % 12.0 Neutrophils # 0.8 L Lymphocytes # 7.8 H Monocytes # 0.2 Eosinophils # 1.2 H Nucleated RBCs/100 WBC 0.4 H Platelet Estimate Marked Decrease L Immature Plt Fraction 5.3 Polychromasia 1+ A Poikilocytosis 1+ A Anisocytosis 1+ A Microcytosis Present A Macrocytosis Present A Haptoglobin ABG pH ABG pCO2 ABG pO2 ABG HCO3 ABG Total CO2 ABG O2 Saturation ABG Base Excess O2 Delivery Device Blood Gas Modality Inspired O2 Tidal Volume PEEP Sodium Potassium Chloride Carbon Dioxide BUN Creatinine Est GFR ( Amer) Est GFR (Non-Af Amer) BUN/Creatinine Ratio Glucose POC Glucose 179 H Calculated Osmolality Calcium Methylmalonic Acid SAMUEL Screen Platelet IgG Antibody Platelet IgM Antibody Blood Type A POSITIVE Antibody Screen NEGATIVE 02/10/18 02/10/18 02/10/18 06:00 06:00 06:00 WBC RBC Hgb Hct MCV MCH MCHC RDW Plt Count MPV Seg Neutrophils % Lymphocytes % Monocytes % Eosinophils % Neutrophils # Lymphocytes # Monocytes # Eosinophils # Nucleated RBCs/100 WBC Platelet Estimate Immature Plt Fraction Polychromasia Poikilocytosis Anisocytosis Microcytosis Macrocytosis Haptoglobin ABG pH ABG pCO2 ABG pO2 ABG HCO3 ABG Total CO2 ABG O2 Saturation ABG Base Excess O2 Delivery Device Blood Gas Modality Inspired O2 Tidal Volume PEEP Sodium Potassium Chloride Carbon Dioxide BUN Creatinine Est GFR ( Amer) Est GFR (Non-Af Amer) BUN/Creatinine Ratio Glucose POC Glucose Calculated Osmolality Calcium Methylmalonic Acid 0.29 SAMUEL Screen NONE DETECTED Platelet IgG Antibody NEGATIVE Platelet IgM Antibody NEGATIVE Blood Type Antibody Screen 02/09/18 07:45 WBC RBC Hgb Hct MCV MCH MCHC RDW Plt Count MPV Seg Neutrophils % Lymphocytes % Monocytes % Eosinophils % Neutrophils # Lymphocytes # Monocytes # Eosinophils # Nucleated RBCs/100 WBC Platelet Estimate Immature Plt Fraction Polychromasia Poikilocytosis Anisocytosis Microcytosis Macrocytosis Haptoglobin 150 ABG pH ABG pCO2 ABG pO2 ABG HCO3 ABG Total CO2 ABG O2 Saturation ABG Base Excess O2 Delivery Device Blood Gas Modality Inspired O2 Tidal Volume PEEP Sodium Potassium Chloride Carbon Dioxide BUN Creatinine Est GFR ( Amer) Est GFR (Non-Af Amer) BUN/Creatinine Ratio Glucose POC Glucose Calculated Osmolality Calcium Methylmalonic Acid SAMUEL Screen Platelet IgG Antibody Platelet IgM Antibody Blood Type Antibody Screen Preliminary micro results at discharge 02/10/18 17:06 Blood Culture - Preliminary Peripheral Venipuncture Culture is incubating and being continuously monitored for growth. Final report to follow. 02/10/18 16:34 Blood Culture - Preliminary Peripheral Venipuncture Culture is incubating and being continuously monitored for growth. Final report to follow. - Impressions ITS Impressions Chest X-Ray 02/08/18 20:18 IMPRESSION: Trace effusions and mild bibasilar airspace disease which could represent atelectasis or pneumonia. D/ / Lisandro Dee MD / Lisandro Dee MD Interpreting Provider: Lisandro Dee MD Abdomen/Pelvis CT 02/10/18 09:30 IMPRESSION: Limited by motion artifact and lack of IV contrast. No CT evidence of acute intra-abdominal process. Small bilateral pleural effusions with bibasilar atelectasis or pneumonia. Colonic diverticulosis. Diffuse atherosclerotic disease. Diffuse osteopenia. D/ / Efra Banuelos / Efra Banuelos Interpreting Provider: Efra Banuelos Echocardiogram 02/10/18 11:44 Impressions: LVEF 45-50%. Mild global left ventricular systolic dysfunction. Indeterminate diastolic function. Normal right ventricular structure and function. Mildly dilated left atrium. Mild mitral regurgitation. Moderate tricuspid regurgitation. Severe pulmonary hypertension. LVEF may be underestimated due to Afib RVR, recommend limited echo with definity after rate control. Left Ventricular Wall Motion: Rest Echo Findings The apex, apical inferior, mid inferior, basal inferior, apical anterior, mid anterior, basal anterior, apical septal, mid inferior septal, basal inferior septal, apical lateral, mid anterior lateral, basal anterior lateral, mid anterior septal, mid inferior lateral, basal anterior septal and basal inferior lateral ignacio were hypokinetic. Findings: Study Quality * Technically adequate exam. ECG Findings * Atrial fibrillation, BBB. Left Ventricle * Normal LV chamber size, wall thickness. * Indeterminate diastolic function. * Atypical septal motion consistent with bundle branch block. * LVEF 45-50%. * Mild global left ventricular systolic dysfunction. Right Ventricle * Normal right ventricular structure and function. Left Atrium * Mildly dilated left atrium. Right Atrium * Normal right atrial size. Interatrial Septum * Interatrial septum not well evaluated. Aortic Valve * Trileaflet aortic valve. * Moderately calcified aortic valve leaflets. * No aortic stenosis. * No aortic regurgitation. Mitral Valve * Moderately calcified mitral valve leaflets. * Mild mitral regurgitation. * No mitral stenosis. Tricuspid Valve * Normal tricuspid valve structure. * No tricuspid stenosis. * Moderate tricuspid regurgitation. * Estimated RVSP is 65 mmHg. * Estimated RA pressure is 8 mmHg. * Severe pulmonary hypertension. Pulmonic Valve * Pulmonic valve is not well visualized. * No pulmonic stenosis. * Trace pulmonic regurgitation. Aorta * Normally sized aortic root. Pericardium * The pericardium appears normal. IVC * Normal IVC dimensions and inspiratory collapse. ADDENDUM: 02/11/18 1239 Impressions: LVEF 45-50%. Mild global left ventricular systolic dysfunction. Indeterminate diastolic function. Normal right ventricular structure and function. Mildly dilated left atrium. Mild mitral regurgitation. Moderate tricuspid regurgitation. Severe pulmonary hypertension. LVEF may be underestimated due to tachycardia, recommend repeat limited echo with definity after rate control. Left Ventricular Wall Motion: Rest Echo Findings The apex, apical inferior, mid inferior, basal inferior, apical anterior, mid anterior, basal anterior, apical septal, mid inferior septal, basal inferior septal, apical lateral, mid anterior lateral, basal anterior lateral, mid anterior septal, mid inferior lateral, basal anterior septal and basal inferior lateral ignacio were hypokinetic. Findings: Study Quality * Technically adequate exam. ECG Findings * Sinus rhythm with PACs, tachycardia, BBB. Left Ventricle * Normal LV chamber size, wall thickness. * Indeterminate diastolic function. * Atypical septal motion consistent with bundle branch block. * LVEF 45-50%. * Mild global left ventricular systolic dysfunction. Right Ventricle * Normal right ventricular structure and function. Left Atrium * Mildly dilated left atrium. Right Atrium * Normal right atrial size. Interatrial Septum * Interatrial septum not well evaluated. Aortic Valve * Trileaflet aortic valve. * Moderately calcified aortic valve leaflets. * No aortic stenosis. * No aortic regurgitation. Mitral Valve * Moderately calcified mitral valve leaflets. * Mild mitral regurgitation. * No mitral stenosis. Tricuspid Valve * Normal tricuspid valve structure. * No tricuspid stenosis. * Moderate tricuspid regurgitation. * Estimated RVSP is 65 mmHg. * Estimated RA pressure is 8 mmHg. * Severe pulmonary hypertension. Pulmonic Valve * Pulmonic valve is not well visualized. * No pulmonic stenosis. * Trace pulmonic regurgitation. Aorta * Normally sized aortic root. Pericardium * The pericardium appears normal. IVC * Normal IVC dimensions and inspiratory collapse. Chest X-Ray 02/11/18 04:00 IMPRESSION: Worsening bibasilar atelectasis and/or pneumonia. Bilateral pleural effusions. D/ / Tay Gibbons MD / Tay Gibbons MD Interpreting Provider: Tay Gibbons MD Echocardiogram Limited Views 02/11/18 13:23 Impressions: LVEF 55-60%. Normal right ventricular structure and function. Mild tricuspid regurgitation. Moderate pulmonary hypertension. Left Ventricular Wall Motion: Rest Echo Findings All wall segments showed normal motion. Findings: Study Quality * Technically adequate exam. ECG Findings * Sinus rhythm with PVCs, BBB. Left Ventricle * LVEF 55-60%. * Normal LV chamber size, wall thickness and function. * Atypical septal motion consistent with bundle branch block. Right Ventricle * Normal right ventricular structure and function. Pleural Effusion * Large pleural effusion. Pericardium * There is no echocardiographic evidence of tamponade. * There is a trivial pericardial effusion present. Tricuspid Valve * Mild tricuspid regurgitation. * Estimated RA pressure is 15 mmHg. * Estimated RVSP is 51 mmHg. * Moderate pulmonary hypertension. Left Atrium * Mildly dilated left atrium. Right Atrium * Normal right atrial size. Chest X-Ray 02/12/18 11:33 IMPRESSION: Worsening bilateral pleural effusions. Bibasilar atelectasis. Right lower lobe opacity may represent consolidation from pneumonia. D/ / Lex Anne MD / Lex Anne MD Interpreting Provider: Lex Anne MD Date of admission: 02/10/18 15:38 Primary care physician: PCP NONE Consults: 02/07/18 21:30 Consult to Occupational Therapy [CONS] Routine Comment: Evaluate, develop and implement POC Reason for Consult: Weakness Does patient have active BEDREST order?: No Is patient medically & hemodynamically stable?: Yes Patient assessed for mobility or mobilized this visit?: No Consult to Physical Therapy [CONS] Routine Comment: Evaluate, develop and implement POC Reason for Consult: Weakness Does patient have active BEDREST order?: No Is patient medically & hemodynamically stable?: Yes Patient assessed for mobility or mobilized this visit?: No 02/07/18 21:31 Consult to Oncology [CONS] Routine Consulting Provider: [facility] [place] Reason for Consult: Thrombocytopenia Call Completed: No 02/10/18 12:03 Consult to Cardiology [CONS] Routine Comment: Consulting Provider: Cardiology [place] Reason for Consult: new afib Call Completed: Yes 02/10/18 17:14 Consult to Critical Care [CONS] Stat Consulting Provider: [facility] [place] Reason for Consult: respirtory failure Call Completed: Yes - Hospital Course Hospital course: Patient family was requesting more hematopahtology work up based on Heme onc opinion and also patient will benefit from advance heart failure . According to patient family wishes patient was transferred to [facility] - Time Spent with Patient Total time spent providing and/or coordinating discharge services: Physical Examination Vital Signs: Vital Signs, Last 4 Hours Temp 02/12/18 21:00 97.2 F L
[2018-02-12] MEDS: traZODone 50 MG TABLET PO SCH (20:27)
--- NOTE | 2018-02-13 15:24 | Electrocardiograph Report ---
[address] [place], [place] [address] Test Date: 2018-02-08 Pat Name: Carlie Bautista Department: 109 Room: 12 Gender: F Disc Recordist: : [id number] Requested By: Alcon Ramsey Order Number: [id number] Reading MD: Chrissy Oleary Measurements Intervals [place] Rate: 86 P: 103 WA: 188 QRS: 6 QRSD: 134 T: 15 QT: 392 QTc: 435 Interpretive Statements SINUS RHYTHM LEFT BUNDLE BRANCH BLOCK Electronically Signed On 02-13-2018 15:23:13 EST by Chrissy Oleary
[2018-02-13 21:30] LABS: Kappa Qnt Free Light Chains 11.3 mg/dL (0.33-1.94); Lambda Qnt Free Light Chains 6.07 mg/dL (0.57-2.63)
== END 2018-02-12 21:08 | disposition critical access hospital (66) | DRG 689 ==
LOC: 2ANU → SUATTDRO 18:52 → ICNU 02-10 17:10
PROVIDERS: ADMIT Internal Medicine; ATTEND Internal Medicine